=== PATIENT | male | born 1970 | race American Indian/Alaskan Native ===

== ENCOUNTER 2016-12-20 06:02 | Inpatient (IN) | payer MEDICARE ==
[2016-12-20] MEDS ORDERED: ATIVAN IV ONE (06:37)
[2016-12-20] MEDS ORDERED: ZOFRAN IV ONE (06:37)
[2016-12-20] MEDS ORDERED: MORPHINE IV ONE (06:37)
[2016-12-20] MEDS ORDERED: PROTONIX IV ONE (06:37)
[2016-12-20 07:07] LABS: Basophils % (Auto) 0.3 % (0.0-1.8); Hematocrit 32.1 % (35.5-45.6); Hemoglobin 10.4 gm/dl (11.8-15.2); Mean Corpuscular HGB Conc 33 % (32-34); Mean Corpuscular Hemoglobin 32 pg (28-32); Mean Corpuscular Volume 97 fl (84-94); Platelet Count 265 K/mm3 (140-440); Red Cell Distribution Width 16.9 % (13.2-15.2); White Blood Count 9.6 K/mm3 (4.5-11.0)
[2016-12-20 07:18] LABS: INR 1.01 (0.87-1.13)
[2016-12-20 07:19] LABS: Partial Thromboplastin Time 24.6 Sec. (24.2-36.6)
[2016-12-20 07:20] LABS: Creatine Kinase MB 1.2 ng/mL (0.0-4.0)
[2016-12-20 07:24] LABS: BUN/Creatinine Ratio 3.76; Calcium 9.4 mg/dL (8.4-10.2); Chloride 93.5 mmol/L (98-107); Potassium 4.4 mmol/L (3.6-5.0)
[2016-12-20 07:31] LABS: Alanine Aminotransferase 8 units/L (7-56); Albumin 3.6 g/dL (3.9-5); Albumin/Globulin Ratio 1.1 %; Alkaline Phosphatase 38 units/L (35-129); Bilirubin,Total 0.3 mg/dL (0.1-1.2); Magnesium 2.1 mg/dL (1.7-2.3); Phosphorous 5.7 mg/dL (2.5-4.5); Total Protein 6.8 g/dL (6.3-8.2)
[2016-12-20 07:32] LABS: Bilirubin,Direct < 0.2 mg/dL (0-0.2)
[2016-12-20] MEDS ORDERED: LEVAQUIN 500MG/100ML 500 MG/100 ML BAG IV ONE (07:34)
[2016-12-20 08:06] LABS: Urine Drugs of Abuse Note Disclamer
[2016-12-20 08:24] LABS: Bilirubin,Urine NEG (Negative); Blood,Urine LG (Negative); Ketones,Urine NEG (Negative); Leukocyte Esterase,Urine SM (Negative); Mucus,Urine FEW /HPF; Nitrite,Urine NEG (Negative); Urobilinogen,Urine < 2.0 mg/dL (<2.0)
--- NOTE | 2016-12-20 08:46 | Cat Scan Report ---
FINAL REPORT PROCEDURE: CT ABDOMEN PELVIS WO CON TECHNIQUE: Computerized axial tomography of the abdomen and pelvis was performed without intravenous contrast. This study is performed without intravascular contrast material and its sensitivity for abdominal and pelvic pathology, including neoplasms, inflammation, abscess, free fluid, thrombosis, arterial dissection and infarction, is reduced compared with a contrast enhanced study. Oral contrast was not administered limiting evaluation of the bowel as well. HISTORY: abd pain COMPARISON: None FINDINGS: Visualized lower thorax: Mild bibasilar subsegmental atelectasis. Infiltrative changes and fluid at the esophageal hiatus extending into the upper abdomen. Liver: Multiple hypodensities the largest of which is of the posterior segment of the right lobe 2.3 x 2.8 centimeters. Spleen: Normal size and attenuation. Gallbladder and biliary system: Normal. Pancreas: Infiltrative changes and fluid about the pancreas. Adrenals: Normal. Kidneys: Innumerable hypodensities as well as rounded densities isodense to [place] renal parenchyma largely replacing both kidneys which are enlarged. Multiple calcifications of both kidneys. No hydronephrosis GI tract: Mild colonic diverticulosis. No bowel obstruction. Normal appendix. Lymph nodes and mesentery: No lymphadenopathy or mesenteric mass. Vasculature: Unremarkable. Bladder: Circumferential bladder wall thickening possibly due to incomplete distension. Reproductive organs: Normal. Peritoneum: No ascites. Musculoskeletal structures: No significant abnormality. Other: Prior umbilical hernia repair. Catheter coiled within the pelvis. IMPRESSION: Suspect changes of uncomplicated pancreatitis. Correlate clinically and obtain follow-up examination to ensure improvement. Infiltrative changes and fluid extends superiorly through the esophageal hiatus. Suspect autosomal dominant polycystic disease with enlarged multi cystic kidneys containing multiple calcifications as well as simple cysts noted of the liver. Six-month follow-up CT to ensure stable appearance of hyperdensities of both kidneys is recommended. Mild colonic diverticulosis. Prior umbilical hernia repair. Bladder wall thickening possibly due to incomplete distention. Clinically exclude cystitis. Catheter coiled within the pelvis either dialysis catheter or intraperitoneal shunt.
--- NOTE | 2016-12-20 09:05 | Emergency Department Report ---
ED General Adult HPI - General Chief complaint: Abdominal Pain Stated complaint: ABD PAIN/EMESIS Time Seen by Provider: 12/20/16 06:16 Source: patient, EMS Mode of arrival: Stretcher Limitations: No Limitations - History of Present Illness Initial comments: Patient reports the onset of vomiting prior to arrival. He states he's been diagnosed with esophagitis in the past. He does not report any chest pain or difficulty in swallowing. He states that he had vomiting after eating. He complains of diffuse abdominal pain and some left flank pain. He states he urinates infrequently. He denies any fever or chills. He states he's had abdominal pain before but no specific diagnosis. He has end-stage renal apparently related to polycystic kidney disease and is on home dialysis. His last run was yesterday. -: Gradual, hour(s) Location: abdomen, left (flank) Radiation: non-radiation Severity scale (0 -10): 10 Quality: aching Consistency: constant Improves with: none Worsens with: none Associated Symptoms: nausea/vomiting. denies: chest pain, cough, diaphoresis, fever/chills, headaches, loss of appetite, malaise, shortness of breath, syncope , weakness - Related Data Home Medications Medication Instructions Recorded Confirmed Last Taken Calcitriol [Rocaltrol] 1 mcg PO BID 03/24/16 12/20/16 03/25/16 NIFEdipine XL [Procardia Xl] 60 mg PO QDAY 03/24/16 12/20/16 03/26/16 10:00 Sevelamer Carbonate [Renvela] 800 mg PO TIDWM 03/24/16 12/20/16 03/25/16 cloNIDine [Catapres] 0.2 mg PO TID 03/24/16 12/20/16 Unknown Allergies Allergy/AdvReac Type Severity Reaction Status Date / Time No Known Allergies Allergy Verified 09/26/13 10:05 ED Review of Systems ROS: Stated complaint: ABD PAIN/EMESIS Other details as noted in HPI Constitutional: denies: chills, fever Eyes: denies: eye pain, eye discharge, vision change ENT: denies: ear pain, throat pain Respiratory: denies: cough, shortness of breath, wheezing Cardiovascular: denies: chest pain, palpitations Endocrine: no symptoms reported Gastrointestinal: abdominal pain, nausea, vomiting. denies: diarrhea Genitourinary: denies: urgency, dysuria Musculoskeletal: denies: back pain, joint swelling, arthralgia Skin: denies: rash, lesions Neurological: denies: headache, weakness, paresthesias Psychiatric: denies: anxiety, depression Hematological/Lymphatic: denies: easy bleeding, easy bruising ED Past Medical Hx - Past Medical History Hx Hypertension: Yes (FOR 20+ YRS) Hx Deep Vein Thrombosis: Yes (RIGHT LEG YRS AGO) Hx GERD: Yes (MILD) Hx Renal Disease: No (Uses home PD) Hx Seizures: No Hx Asthma: No Hx HIV: No Additional medical history: umbilical hernia - Social History Smoking Status: Light Tobacco Smoker Substance Use Type: None - Medications Home Medications: Home Medications Medication Instructions Recorded Confirmed Last Taken Type Calcitriol [Rocaltrol] 1 mcg PO BID 03/24/16 12/20/16 03/25/16 History NIFEdipine XL [Procardia Xl] 60 mg PO QDAY 03/24/16 12/20/16 03/26/16 10:00 History Sevelamer Carbonate [Renvela] 800 mg PO TIDWM 03/24/16 12/20/16 03/25/16 History cloNIDine [Catapres] 0.2 mg PO TID 03/24/16 12/20/16 Unknown History ED Physical Exam - General Limitations: No Limitations General appearance: alert, in no apparent distress - Head Head exam: Present: atraumatic, normocephalic - Eye Eye exam: Present: normal appearance. Absent: scleral icterus - ENT ENT exam: Present: mucous membranes moist - Neck Neck exam: Present: normal inspection - Respiratory Respiratory exam: Present: normal lung sounds bilaterally. Absent: respiratory distress - Cardiovascular Cardiovascular Exam: Present: regular rate, normal rhythm. Absent: systolic murmur, diastolic murmur, rubs, gallop - GI/Abdominal GI/Abdominal exam: Present: soft, distended (perhaps slightly), tenderness ( some diffuse tenderness but no lata rebound), guarding (mild voluntary), normal bowel sounds. Absent: rebound, rigid, organomegaly, mass, bruit, pulsatile mass, hernia - Rectal Rectal exam: Present: deferred - Extremities Exam Extremities exam: Present: normal inspection - Back Exam Back exam: Present: normal inspection - Neurological Exam Neurological exam: Present: alert, oriented X3, CN II-XII intact. Absent: motor sensory deficit - Psychiatric Psychiatric exam: Present: normal affect, normal mood - Skin Skin exam: Present: warm, dry, intact, normal color. Absent: rash ED Course Vital Signs 12/20/16 12/20/16 12/20/16 06:38 07:04 07:28 Temperature 97.7 F Pulse Rate 85 Respiratory 20 17 Rate Blood Pressure O2 Sat by Pulse 100 Oximetry 12/20/16 12/20/16 12/20/16 07:29 07:31 07:33 Temperature Pulse Rate 89 92 H Respiratory 21 21 18 Rate Blood Pressure 157/97 157/97 157/97 O2 Sat by Pulse 99 97 Oximetry 12/20/16 12/20/16 12/20/16 07:35 07:37 07:39 Temperature Pulse Rate 85 90 Respiratory 24 27 H 22 Rate Blood Pressure 157/97 157/97 157/97 O2 Sat by Pulse 78 L 97 98 Oximetry 12/20/16 12/20/16 12/20/16 07:41 07:43 07:45 Temperature Pulse Rate 130 H 83 85 Respiratory 22 22 22 Rate Blood Pressure 157/97 157/97 157/97 O2 Sat by Pulse 96 99 99 Oximetry 12/20/16 12/20/16 12/20/16 07:47 07:49 07:50 Temperature Pulse Rate 83 85 86 Respiratory 19 17 22 Rate Blood Pressure 157/97 157/97 157/97 O2 Sat by Pulse 98 100 Oximetry - Reevaluation(s) Reevaluation #1: Patient was given antiemetics, Protonix and analgesia. Did have some atelectasis perhaps the left lower lobe and was given a dose of Levaquin. He was found to have an increased anion gap acidosis. I think this is related to pancreatitis as his lipase as finally been resulted and is over 2300. A CT of his abdomen showed uncomplicated pancreatitis per the radiologist. He has pre- existing polycystic kidney disease. Case was discussed with Dr. Arie Bowden who is admitted the patient for further care and evaluation. 12/20/16 09:14 ED Medical Decision Making - Lab Data Result diagrams: 12/20/16 06:36 12/20/16 06:36 - EKG Data -: EKG Interpreted by Me EKG shows normal: sinus rhythm, intervals, QRS complexes, ST-T waves - EKG Data Interpretation: nonspecific ST-T wave giovanni (left anterior fascicular block), other - Radiology Data Radiology results: report reviewed interpreted by me: Chest x-ray was some atelectasis left lower lobe. CT was consistent with fairly extensive pancreatitis. Critical care attestation.: If time is entered above; I have spent that time in minutes in the direct care of this critically ill patient, excluding procedure time. ED Disposition Clinical Impression: Metabolic acidosis, increased anion gap, End stage renal disease on dialysis Acute pancreatitis Qualifiers: Pancreatitis type: unspecified pancreatitis type Acute pancreatitis complication: unspecified Qualified Code(s): K85.90 - Acute pancreatitis without necrosis or infection, unspecified Disposition: OP ADMITTED IP TO THIS HOSP Is pt being admited?: Yes Does the pt Need Aspirin: No Condition: Stable Referrals: PRIMARY CARE, [Primary Care Provider] - 3-5 Days Time of Disposition: 09:17
[2016-12-20] MEDS ORDERED: BENADRYL ONE (09:09)
[2016-12-20] MEDS ORDERED: DILAUDID ONE (09:09)
--- NOTE | 2016-12-20 09:17 | XRay Report ---
AP CHEST: HISTORY: Hypertension There is poor inspiration. A small left lower lobe air space opacity is identified. The fever is present, this could represent an infiltrate. This may also represent segmental atelectasis. The remainder of the lungs are clear. Normal heart and mediastinal structures. Normal bony thorax. IMPRESSION: Left lower lobe opacity as described.
[2016-12-20] MEDS ORDERED: DILAUDID IV ONE (09:21)
[2016-12-20] MEDS ORDERED: BENADRYL IV ONE (09:21)
[2016-12-20] MEDS ORDERED: DULCOLAX PR PRN (09:38)
[2016-12-20] MEDS ORDERED: MILK OF MAGNESIA PO PRN (09:38)
--- NOTE | 2016-12-20 09:45 | History and Physical Report ---
History of Present Illness Date of examination: 12/20/16 Date of admission: 12-20-16 Chief complaint: nausea and vomiting History of present illness: Patient is a 46-year-old male that originally presented to the ED with nausea vomiting. Associated with some meals. No bleeding no hematopoiesis no hematochezia. Patient has a history of end-stage renal disease and had an episode of nausea and vomiting after hemodialysis yesterday. Patient however states he's been nauseated when he's not having dialysis as well. Patient at present states he still has some nausea associated with vague abdominal pain that extends from the mid epigastrium to left upper and sometimes lower abdomen. She did state Zofran helps. CT scan showed uncomplicated pancreatitis. Patient initially denied EtOH use but when asked again after findings stated that he drinks a half a beer and 2 shots of alcohol per day. He should admitted for acute pancreatitis. Was also found to have increased gap metabolic acidosis. His sawyer helper is Dr. Mcgrath. Also uses that his primary care physician majority of the time. Patient appears now to be hemodynamically stable on current pain regime. Past History Past Medical History: GERD, hypertension, other (pud). denies: acute SD, atrial fib, anemia, arthritis, CAD, DVT, heart failure, hyperthyroidism, hypothyroidism, migraines, pulmonary embolism, seizures, stroke Past Surgical History: hernia repair Social history: lives with family, smoking, full code. denies: alcohol abuse, prescription drug abuse, IV drug use Family history: hypertension Medications and Allergies Allergies Allergy/AdvReac Type Severity Reaction Status Date / Time No Known Allergies Allergy Verified 09/26/13 10:05 Home Medications Medication Instructions Recorded Confirmed Last Taken Type Calcitriol [Rocaltrol] 1 mcg PO BID 03/24/16 12/20/16 03/25/16 History NIFEdipine XL [Procardia Xl] 60 mg PO QDAY 03/24/16 12/20/16 03/26/16 10:00 History Sevelamer Carbonate [Renvela] 800 mg PO TIDWM 03/24/16 12/20/16 03/25/16 History cloNIDine [Catapres] 0.2 mg PO TID 03/24/16 12/20/16 Unknown History Review of Systems Constitutional: no weight loss Ears, nose, mouth and throat: no deferred, no ear discharge, no decreased hearing, no nose pain, no nasal congestion, no bleeding gums, no dental pain, no dysphagia, no vertigo, no pain front of neck Cardiovascular: no chest pain, no orthopnea, no rapid/irregular heart beat, no dyspnea on exertion, no claudication, no phlebitis, no leg edema, no other Respiratory: no cough with sputum, no congestion, no wheezing, no pleurisy, no sleep apnea, no other Gastrointestinal: abdominal pain, nausea, vomiting, change in bowel habits, loss of appetite, no diarrhea, no constipation, no hematemesis, no coffee ground emesis, no BRBPR, no melena, no hematochezia, no early satiety, no heartburn, no indigestion, no belching, no excessive gas, no jaundice, no dyspepsia/bloating, no early satiety, no lactose intolerance Genitourinary Male: no hematuria, no flank pain, no discharge, no urinary frequency, no urinary hesitancy, no nocturia, no impotence, no decreased libido , no testicular lump, no polyuria, no urinary retention Rectal: no pain, no incontinence Musculoskeletal: no shooting arm pain, no low back pain, no shooting leg pain, no leg numbness/tingling, no hot joints, no muscle weakness, no muscle cramps, no myalgias, no atrophy, no gait dysfunction Integumentary: no pruritis, no redness, no sores, no wounds, no jaundice, no growths, no lesions, no depigmentation, no dryness, no change in hair/nails, no brittle nails, no hirsutism, no onychomycosis Exam - Constitutional Vitals: Temp Pulse Resp BP Pulse Ox 97.7 F 90 17 154/104 99 12/20/16 06:38 12/20/16 09:15 12/20/16 09:24 12/20/16 09:15 12/20/16 09:24 General appearance: Present: mild distress - EENT ENT: hearing intact, clear oral mucosa - Neck Neck: Present: supple, normal ROM - Respiratory Respiratory effort: normal Respiratory: bilateral: CTA - Cardiovascular Heart Sounds: Present: S1 & S2. Absent: rub, click - Extremities Extremities: pulses symmetrical, No edema - Abdominal General gastrointestinal: Present: tender, non-distended, hypoactive bowel sounds, other (pain greater in left quadrant.) Male genitourinary: Present: normal - Integumentary Integumentary: Present: clear, warm, dry - Musculoskeletal Musculoskeletal: gait normal, strength equal bilaterally - Psychiatric Psychiatric: appropriate mood/affect, intact judgment & insight - Neurologic Neurologic: CNII-XII intact, moves all extremities Results - Labs CBC & Chem 7: 12/20/16 06:36 12/20/16 06:36 Labs: Laboratory Last Values WBC 9.6 K/mm3 (4.5-11.0) 12/20/16 06:36 RBC 3.30 M/mm3 (3.65-5.03) L 12/20/16 06:36 Hgb 10.4 gm/dl (11.8-15.2) L 12/20/16 06:36 Hct 32.1 % (35.5-45.6) L 12/20/16 06:36 MCV 97 fl (84-94) H 12/20/16 06:36 MCH 32 pg (28-32) 12/20/16 06:36 MCHC 33 % (32-34) 12/20/16 06:36 RDW 16.9 % (13.2-15.2) H 12/20/16 06:36 Plt Count 265 K/mm3 (140-440) 12/20/16 06:36 Lymph % (Auto) 5.9 % (13.4-35.0) L 12/20/16 06:36 [place] % (Auto) 4.3 % (0.0-7.3) 12/20/16 06:36 Eos % (Auto) 0.0 % (0.0-4.3) 12/20/16 06:36 Baso % (Auto) 0.3 % (0.0-1.8) 12/20/16 06:36 Lymph # 0.6 K/mm3 (1.2-5.4) L 12/20/16 06:36 [place] # 0.4 K/mm3 (0.0-0.8) 12/20/16 06:36 Eos # 0.0 K/mm3 (0.0-0.4) 12/20/16 06:36 Baso # 0.0 K/mm3 (0.0-0.1) 12/20/16 06:36 Seg Neutrophils % 89.5 % (40.0-70.0) H 12/20/16 06:36 Seg Neutrophils # 8.6 K/mm3 (1.8-7.7) H 12/20/16 06:36 PT 13.2 Sec. (12.2-14.9) 12/20/16 06:36 INR 1.01 (0.87-1.13) 12/20/16 06:36 APTT 24.6 Sec. (24.2-36.6) 12/20/16 06:36 VBG pH 7.302 (7.320-7.420) L 12/20/16 07:45 Sodium 138 mmol/L (137-145) 12/20/16 06:36 Potassium 4.4 mmol/L (3.6-5.0) 12/20/16 06:36 Chloride 93.5 mmol/L (98-107) L 12/20/16 06:36 Carbon Dioxide 19 mmol/L (22-30) L 12/20/16 06:36 Anion Gap 30 mmol/L 12/20/16 06:36 BUN 79 mg/dL (9-20) H 12/20/16 06:36 Creatinine 21.0 mg/dL (0.8-1.5) H 12/20/16 06:36 Estimated GFR 3 ml/min 12/20/16 06:36 BUN/Creatinine Ratio 3.76 % 12/20/16 06:36 Glucose 88 mg/dL (75-100) 12/20/16 06:36 Lactic Acid 0.9 mmol/L (0.7-2.0) 12/20/16 07:45 Calcium 9.4 mg/dL (8.4-10.2) 12/20/16 06:36 Phosphorus 5.7 mg/dL (2.5-4.5) H 12/20/16 06:36 Magnesium 2.1 mg/dL (1.7-2.3) 12/20/16 06:36 Total Bilirubin 0.3 mg/dL (0.1-1.2) 12/20/16 06:36 Direct Bilirubin < 0.2 mg/dL (0-0.2) 12/20/16 06:36 AST 18 units/L (5-40) 12/20/16 06:36 ALT 8 units/L (7-56) 12/20/16 06:36 Alkaline Phosphatase 38 units/L (35-129) 12/20/16 06:36 Total Creatine Kinase 121 units/L (55-170) 12/20/16 06:36 CK-MB (CK-2) 1.2 ng/mL (0.0-4.0) 12/20/16 06:36 CK-MB (CK-2) Rel Index 0.9 (0-4) 12/20/16 06:36 Troponin T < 0.010 ng/mL (0.00-0.029) 12/20/16 06:36 NT-Pro-B Natriuret Pep 6862 pg/mL (0-450) H 12/20/16 06:36 Total Protein 6.8 g/dL (6.3-8.2) 12/20/16 06:36 Albumin 3.6 g/dL (3.9-5) L 12/20/16 06:36 Albumin/Globulin Ratio 1.1 % 12/20/16 06:36 Lipase 2313 units/L (13-60) H 12/20/16 06:36 Urine Color Yellow (Yellow) 12/20/16 08:00 Urine Turbidity Clear (Clear) 12/20/16 08:00 Urine pH 7.0 (5.0-7.0) 12/20/16 08:00 Ur Specific [place] 1.009 (1.003-1.030) 12/20/16 08:00 Urine Protein 100 mg/dl mg/dL (Negative) 12/20/16 08:00 Urine Glucose (UA) Neg mg/dL (Negative) 12/20/16 08:00 Urine Ketones Neg mg/dL (Negative) 12/20/16 08:00 Urine Blood Lg (Negative) 12/20/16 08:00 Urine Nitrite Neg (Negative) 12/20/16 08:00 Urine Bilirubin Neg (Negative) 12/20/16 08:00 Urine Urobilinogen < 2.0 mg/dL (<2.0) 12/20/16 08:00 Ur Leukocyte Esterase Sm (Negative) 12/20/16 08:00 Urine WBC (Auto) 7.0 /HPF (0.0-6.0) H 12/20/16 08:00 Urine RBC (Auto) 8.0 /HPF (0.0-6.0) 12/20/16 08:00 U Epithel Cells (Auto) < 1.0 /HPF (0-13.0) 12/20/16 08:00 Urine Mucus Few /HPF 12/20/16 08:00 - Imaging and Cardiology EKG: image reviewed Chest x-ray: image reviewed CT scan - abdomen: image reviewed Assessment and Plan Advance Directives: Yes VTE prophylaxis?: Chemical Plan of care discussed with patient/family: Yes - Patient Problems (1) Acute pancreatitis Current Visit: Yes Status: Acute Qualifiers: Pancreatitis type: unspecified pancreatitis type Acute pancreatitis complication: unspecified Qualified Code(s): K85.90 - Acute pancreatitis without necrosis or infection, unspecified Plan to address problem: Patient with acute pancreatitis given history most likely etiology is alcohol use. Patient's lipase 2300 CT scan shows uncomplicated pancreatitis. Clinical observation consistent with acute pancreatitis. We'll treat nothing by mouth start Protonix. Follow lipase. Avoid alcohol. Symptomatic relief with Zofran. (2) End stage renal disease on dialysis Current Visit: Yes Status: Acute Plan to address problem: Consult renal for hemodialysis. Patient also has increased metabolic acidosis. We'll add small dose of bicarbonate. Acidosis consistent with RTA. (3) Metabolic acidosis, increased anion gap Current Visit: Yes Status: Acute (4) Anemia, chronic renal failure Current Visit: No Status: Acute Qualifiers: Chronic kidney disease stage: stage 5 Qualified Code(s): N18.5 - Chronic kidney disease, stage 5; D63.1 - Anemia in chronic kidney disease Plan to address problem: End-stage renal disease on hemodialysis. (5) Hypertension Current Visit: No Status: Acute Qualifiers: Hypertension type: essential hypertension Qualified Code(s): I10 - Essential (primary) hypertension Plan to address problem: BP fairly well controlled at this particular time we'll restart medications antihypertensives. (6) Pneumonia Current Visit: Yes Status: Acute Qualifiers: Pneumonia type: P Aspiration pneumonia type: A Laterality: L Lung location: L Plan to address problem: Patient did have some small amount of atelectasis does not appear to be pneumonia at this particular time no shortness of breath. Examining x-ray carefully and does not appear to be an infiltrate. Treated empirically today we 'll hold anabiotic's and watch for any fever or signs of sepsis. (7) Metabolic acidosis Current Visit: Yes Status: Acute Plan to address problem: Suspect secondary to RTA nephrology consult pending. Bicarbonate.
[2016-12-20] MEDS ORDERED: NACL 0.9% 1000 ML 1,000 ML IV SCH (10:00)
[2016-12-20] MEDS ORDERED: LOVENOX SUB-Q SCH (10:00)
[2016-12-20] MEDS: LOVENOX SUB-Q SCH (10:12)
[2016-12-20] MEDS: RENVELA PO SCH ×2 (11:38→16:04)
[2016-12-20] MEDS: PROCARDIA XL PO SCH (12:09)
[2016-12-20] MEDS: DILAUDID IV PRN ×3 (12:27→21:21)
[2016-12-20] MEDS: CATAPRES PO SCH ×2 (13:00→21:24)
--- NOTE | 2016-12-20 13:13 | Consultation ---
History of Present Illness - Reason for Consult Consult date: 12/20/16 end stage renal disease Requesting physician: DAVIDE RUBY - History of Present Illness This is a 46yo M well known to our group, with past medical history of hypertension, ESRD on PD, anemia of ESRD, who presented to the ED with complaints of midgastric abdominal pain, radiating to the back, associated with nausea, multiple episodes of non-bloody, nonbilious vomiting. No melena, hematemesis, or hematochezia reported. Pt could not perform PD last night completely due to above symptoms. In ER, CT scan showed uncomplicated pancreatitis. pt reports drinking a half a beer and 2 shots of alcohol per day. labs showed elevated lipase of >2000. pt is being admitted for acute pancreatitis. Renal consult is requested for management of ESRD and PD. Past History Past Medical History: GERD, hypertension, other (pud). denies: acute [place], atrial fib, anemia, arthritis, CAD, DVT, heart failure, hyperthyroidism, hypothyroidism, migraines, pulmonary embolism, seizures, stroke Past Surgical History: hernia repair Social history: lives with family, smoking, full code. denies: alcohol abuse, prescription drug abuse, IV drug use Family history: hypertension Medications and Allergies Allergies Allergy/AdvReac Type Severity Reaction Status Date / Time No Known Allergies Allergy Verified 09/26/13 10:05 Home Medications Medication Instructions Recorded Confirmed Last Taken Type Calcitriol [Rocaltrol] 1 mcg PO BID 03/24/16 12/20/16 03/25/16 History NIFEdipine XL [Procardia Xl] 60 mg PO QDAY 03/24/16 12/20/16 03/26/16 10:00 History Sevelamer Carbonate [Renvela] 800 mg PO TIDWM 03/24/16 12/20/16 03/25/16 History cloNIDine [Catapres] 0.2 mg PO TID 03/24/16 12/20/16 Unknown History Active Meds: Active Medications Acetaminophen (Tylenol) 650 mg PO Q4H PRN PRN Reason: Pain MILD(1-3)/Fever >100.5/ROJO Albuterol/Ipratropium (Duoneb 0.5 Mg-3 Mg/3 Ml Soln) 1 ampul IH Q6HRT [facility] Bisacodyl (Dulcolax) 10 mg SD QDAY PRN PRN Reason: Constipation unrelieved by [facility] Calcitriol (Rocaltrol) 1 mcg PO BID [facility] Clonidine HCl (Catapres) 0.2 mg PO TID [facility] Enoxaparin Sodium (Lovenox) 30 mg SUB-Q QDAY [facility] Last Admin: 12/20/16 10:12 Dose: 30 mg Hydromorphone HCl (Dilaudid) 0.5 mg IV Q3H PRN PRN Reason: Pain , Severe (7-10) Last Admin: 12/20/16 12:27 Dose: 0.5 mg Sodium Chloride (Nacl 0.9% 1000 Ml) 1,000 mls @ 125 mls/hr IV DIRECT [facility] Last Admin: 12/20/16 12:10 Dose: 125 mls/hr Sodium Bicarbonate 150 meq/ (Dextrose) 1,150 mls @ 42 mls/hr IV DIRECT [facility] Magnesium Hydroxide (Milk Of Magnesia) 30 ml PO Q4H PRN PRN Reason: Constipation Nifedipine (Procardia Xl) 60 mg PO QDAY [facility] Last Admin: 12/20/16 12:09 Dose: 60 mg Ondansetron HCl (Zofran) 8 mg IV Q6H PRN PRN Reason: N/V unrelieved by Reglan Sevelamer Carbonate (Renvela) 800 mg PO TIDWM [facility] Last Admin: 12/20/16 11:38 Dose: Not Given Review of Systems All systems: negative Constitutional: fatigue, poor appetite Gastrointestinal: abdominal pain, nausea, vomiting, heartburn, no BRBPR, no melena, no hematochezia, no jaundice Genitourinary Male: hematuria, no dysuria, no flank pain Exam - Vital Signs Vital signs: Vital Signs Temp 97.7 F 12/20/16 06:38 - General Appearance General appearance: well-developed, well-nourished, appears stated age EENT: ATNC, PERRL, mucous membranes moist Neck: Present: neck supple Respiratory: Clear to Ascultation Heart: regular, S1S2 Gastrointestinal: Present: tenderness, other (PD cath site c/d/i ) Integumentary: no rash, other (no edema ) Neurologic: no focal deficit, alert and oriented x3, strength 5/5, CN 3-12 intact Psychiatric: mood/affect appropriate, cooperative Results - Lab Results 12/20/16 06:36 12/20/16 06:36 Most recent lab results Calcium 9.4 mg/dL (8.4-10.2) 12/20/16 06:36 Phosphorus 5.7 mg/dL (2.5-4.5) H 12/20/16 06:36 Magnesium 2.1 mg/dL (1.7-2.3) 12/20/16 06:36 Laboratory Tests 12/20/16 12/20/16 12/20/16 06:36 06:36 06:36 Phosphorus 5.7 H Magnesium 2.1 Total Bilirubin 0.3 Direct Bilirubin < 0.2 AST 18 ALT 8 Alkaline Phosphatase 38 Total Creatine Kinase 121 CK-MB (CK-2) 1.2 CK-MB (CK-2) Rel Index 0.9 Troponin T < 0.010 NT-Pro-B Natriuret Pep 6862 H Total Protein 6.8 Albumin 3.6 L Albumin/Globulin Ratio 1.1 Lipase 2313 H Urine Color Urine Turbidity Urine pH Ur Specific [place] Urine Protein Urine Glucose (UA) Urine Ketones Urine Blood Urine Nitrite Urine Bilirubin Urine Urobilinogen Ur Leukocyte Esterase Urine WBC (Auto) Urine RBC (Auto) U Epithel Cells (Auto) Urine Mucus Urine Opiates Screen Urine Methadone Screen Ur Barbiturates Screen Ur Phencyclidine Scrn Ur Amphetamines Screen U Benzodiazepines Scrn Urine Cocaine Screen U Marijuana (THC) Screen Drugs of Abuse Note 12/20/16 12/20/16 08:00 08:00 Phosphorus Magnesium Total Bilirubin Direct Bilirubin AST ALT Alkaline Phosphatase Total Creatine Kinase CK-MB (CK-2) CK-MB (CK-2) Rel Index Troponin T NT-Pro-B Natriuret Pep Total Protein Albumin Albumin/Globulin Ratio Lipase Urine Color Yellow Urine Turbidity Clear Urine pH 7.0 Ur Specific [place] 1.009 Urine Protein 100 mg/dl Urine Glucose (UA) Neg Urine Ketones Neg Urine Blood Lg Urine Nitrite Neg Urine Bilirubin Neg Urine Urobilinogen < 2.0 Ur Leukocyte Esterase Sm Urine WBC (Auto) 7.0 H Urine RBC (Auto) 8.0 U Epithel Cells (Auto) < 1.0 Urine Mucus Few Urine Opiates Screen Presumptive negative Urine Methadone Screen Presumptive negative Ur Barbiturates Screen Presumptive negative Ur Phencyclidine Scrn Presumptive negative Ur Amphetamines Screen Presumptive negative U Benzodiazepines Scrn Presumptive negative Urine Cocaine Screen Presumptive negative U Marijuana (THC) Screen Presumptive negative Drugs of Abuse Note Disclamer Assessment and Plan Assessment: 1. acute pancreatitis 2. ESRD on PD 3. Anemia of ESRD 4. Hypertension 5. metabolic acidosis 6.Secondary hyperparathyroidism Plan/Recommendations: 1. pt is NPO, awaiting further GI evaluation 2. continue IV D5 + 150meq Na bicarb at 42ml/hr 3. will resume CAPD in AM once abdominal pain improved, 4 cycles w/ 1.5dineal solution, dwell volume 1.5-2L as tolerated. 4. continue sensipar/renvela for treatment of secondary hyperparathyrodism 5. will monitor electrolytes and renal parameters and make further recommendations Thanks for the consultation will follow patient closely with you.
[2016-12-20] MEDS: ROCALTROL PO SCH ×2 (13:39→21:43)
[2016-12-20] MEDS: DUONEB 0.5 MG-3 MG/3 ML SOLN IH SCH ×2 (13:59→20:17)
--- NOTE | 2016-12-20 15:04 | Gastroenterology Consultation ---
History of Present Illness - Reason for Consult Consult date: 12/20/16 acute pancreatitis Requesting physician: DAVIDE BOWDEN - History of Present Illness The patient is a 46 year old man with multiple medical problems as below for who consultation was requested for acute pancreatitis. He was at baseline until yesterday afternoon when he developed acute periumbilical pain which was severe and radiated to the back. He has no prior history of pancreatitis or gallstones. The patient drinks 2 shots of liquor daily and a half a beer. He smokes 5 cigarettes daily. No FH of pancreatitis Past History Past Medical History: GERD, hypertension, other (pud). denies: acute [place], atrial fib, anemia, arthritis, CAD, DVT, heart failure, hyperthyroidism, hypothyroidism, migraines, pulmonary embolism, seizures, stroke Past Surgical History: hernia repair Social history: lives with family, smoking, full code. denies: alcohol abuse, prescription drug abuse, IV drug use Family history: hypertension Medications and Allergies Allergies Allergy/AdvReac Type Severity Reaction Status Date / Time No Known Allergies Allergy Verified 09/26/13 10:05 Home Medications Medication Instructions Recorded Confirmed Last Taken Type Calcitriol [Rocaltrol] 1 mcg PO BID 03/24/16 12/20/16 03/25/16 History NIFEdipine XL [Procardia Xl] 60 mg PO QDAY 03/24/16 12/20/16 03/26/16 10:00 History Sevelamer Carbonate [Renvela] 800 mg PO TIDWM 03/24/16 12/20/16 03/25/16 History cloNIDine [Catapres] 0.2 mg PO TID 03/24/16 12/20/16 Unknown History Active Meds: Active Medications Acetaminophen (Tylenol) 650 mg PO Q4H PRN PRN Reason: Pain MILD(1-3)/Fever >100.5/ROJO Albuterol/Ipratropium (Duoneb 0.5 Mg-3 Mg/3 Ml Soln) 1 ampul IH Q6HRT [facility] Last Admin: 12/20/16 13:59 Dose: 1 ampul Bisacodyl (Dulcolax) 10 mg [place] QDAY PRN PRN Reason: Constipation unrelieved by MOM Calcitriol (Rocaltrol) 1 mcg PO BID [facility] Last Admin: 12/20/16 13:39 Dose: Not Given Clonidine HCl (Catapres) 0.2 mg PO TID [facility] Last Admin: 12/20/16 13:00 Dose: 0.2 mg Enoxaparin Sodium (Lovenox) 30 mg SUB-Q QDAY [facility] Last Admin: 12/20/16 10:12 Dose: 30 mg Hydromorphone HCl (Dilaudid) 0.5 mg IV Q3H PRN PRN Reason: Pain , Severe (7-10) Last Admin: 12/20/16 12:27 Dose: 0.5 mg Sodium Chloride (Nacl 0.9% 1000 Ml) 1,000 mls @ 125 mls/hr IV DIRECT [facility] Last Admin: 12/20/16 12:10 Dose: 125 mls/hr Sodium Bicarbonate 150 meq/ (Dextrose) 1,150 mls @ 42 mls/hr IV DIRECT [facility] Magnesium Hydroxide (Milk Of Magnesia) 30 ml PO Q4H PRN PRN Reason: Constipation Nifedipine (Procardia Xl) 60 mg PO QDAY [facility] Last Admin: 12/20/16 12:09 Dose: 60 mg Ondansetron HCl (Zofran) 8 mg IV Q6H PRN PRN Reason: N/V unrelieved by Reglan Peritoneal Dialysis Solution (Dianeal Low Calcium W/1.5% Dextrose) 2,000 ml IP Q6HR [facility] Sevelamer Carbonate (Renvela) 800 mg PO TIDWM [facility] Last Admin: 12/20/16 11:38 Dose: Not Given Review of Systems - Review of Systems Constitutional: no weight loss, no weight gain Eyes: no change in vision Ears, Nose, Throat: no decreased hearing, no difficulty swallowing, no epistaxis Breasts: deferred Cardiovascular: no chest pain, no palpitations, no shortness of breath Respiratory: no cough, no shortness of breath, no wheezing, no home oxygen Gastrointestinal: abdominal pain, nausea, vomiting, no diarrhea, no constipation , no change in bowel habits, no hematemesis, no melena Rectal: no pain Male Genitourinary: deferred Musculoskeletal: no gait dysfunction, no joint pain, no muscle pain Integumentary: no rash, no pruritis, no jaundice Neurological: no head injury, no paralysis, no weakness, no memory loss Psychiatric: no anxiety, no memory loss, no change in appetite Endocrine: no cold intolerance, no heat intolerance Hematologic/Lymphatic: no easy bruising, no easy bleeding Allergic/Immunologic: no wheezing Exam - Constitutional Vital Signs: Temp Pulse Resp BP Pulse Ox 98.5 F 88 20 182/102 97 12/20/16 11:48 12/20/16 14:13 12/20/16 14:13 12/20/16 13:00 12/20/16 13:59 General appearance: no acute distress, well-nourished - EENT Eyes: PERRL ENT: hearing intact, clear oral mucosa, dentition normal - Neck Neck: supple, normal ROM, no masses or JVD - Respiratory Respiratory effort: normal Respiratory: bilateral: CTA - Breasts Breasts: deferred - Cardiovascular Rhythm: regular Heart Sounds: Present: S1 & S2. Absent: gallop, rub Extremities: pulses intact, No edema, normal color, Full ROM Extremity abnormal: other (AV shunt in left forearm) - Gastrointestinal General gastrointestinal: Present: soft, tender (diffuse tenderness with no rebound). Absent: distended, rigid, normal bowel sounds, mass, hernia Rectal Exam: deferred - Integumentary Integumentary: Present: clear, warm, dry - Neurologic Neurological: alert and oriented x3 - Psychiatric Psychiatric: appropriate mood/affect, intact judgment & insight, memory intact - Labs CBC & Chem 7: 12/20/16 06:36 12/20/16 06:36 - Imaging CT Scan: image reviewed (A non contrasted CT was performed. Kidneys revealed extensive cystic disease. A few cystic lesion were scattered throughout the liver. The pancreas was moderately enlarged with no obvious phlegmon/ pseudocyst formation. The study was limited without contrast) Assessment and Plan - Patient Problems (1) Acute pancreatitis Current Visit: Yes Status: Acute Qualifiers: Pancreatitis type: unspecified pancreatitis type Acute pancreatitis complication: unspecified Qualified Code(s): K85.90 - Acute pancreatitis without necrosis or infection, unspecified Plan to address problem: Alcohol is the likely etiology. Rule out gallstones. Less likely congenital or familial. Will plan u/s and continue supportive care, pain control as you have initiated. Thank you, Dr. Bowden, for asking me to see Mr. Beckham in consultation. (2) End stage renal disease on dialysis Current Visit: Yes Status: Acute (3) Metabolic acidosis Current Visit: Yes Status: Acute (4) ESRD on peritoneal dialysis Current Visit: No Status: Acute
[2016-12-20] MEDS: SODIUM BICARBONATE 150 MEQ in D5W 1,000 ML IV SCH (16:00)
[2016-12-20] MEDS: ZOFRAN IV PRN ×2 (17:12→21:42)
[2016-12-21] MEDS: DILAUDID IV PRN ×7 (01:02→22:10)
[2016-12-21] MEDS: DUONEB 0.5 MG-3 MG/3 ML SOLN IH SCH ×4 (02:30→19:51)
[2016-12-21] MEDS: DIANEAL LOW CALCIUM W/1.5% DEXTROSE IP SCH ×3 (05:41→18:30)
[2016-12-21] MEDS: ZOFRAN IV PRN (06:45)
[2016-12-21 08:15] LABS: BUN/Creatinine Ratio 3.69; Bilirubin,Total 0.4 mg/dL (0.1-1.2); Calcium 8.7 mg/dL (8.4-10.2); Chloride 93.9 mmol/L (98-107); Potassium 4.4 mmol/L (3.6-5.0); Total Protein 6.5 g/dL (6.3-8.2)
[2016-12-21] MEDS: RENVELA PO SCH ×3 (09:30→17:55)
[2016-12-21] MEDS: CATAPRES PO SCH ×3 (09:41→20:53)
[2016-12-21] MEDS: LOVENOX SUB-Q SCH (09:42)
[2016-12-21] MEDS: PROCARDIA XL PO SCH (09:42)
[2016-12-21] MEDS: ROCALTROL PO SCH ×2 (09:42→21:38)
--- NOTE | 2016-12-21 10:01 | Admit Criteria Form ---
Admission Criteria Documentation: PANCREATITIS Clinical Indications for Admission to Inpatient Care (Place 'X' for any and all applicable criteria): Admission is indicated for ANY ONE of the following (1)(2)(3)(4): [X]I. Acute pancreatitis[A] as indicated by 2 or more of the following: [X]a) Abdominal pain (eg, epigastric, left upper quadrant) [X]b) Serum amylase or serum lipase greater than 3 times the upper limit of normal [X]c) Characteristic findings from abdominal imaging (eg, pancreatic inflammation, pancreatic necrosis, peripancreatic fluid collection)[B] [ ]II. Pancreatitis (acute or chronic) requiring inpatient care as indicated by 1 or more of the following: [ ]a) Inability to maintain oral hydration Hypoxemia [ ]b) Evidence of infection (eg, fever, peripancreatic abscess) [ ]c) Severe pain requiring acute inpatient management [ ]d) Hemodynamic instability [ ]e) Hypoxemia [ ]f) Acute renal failure [ ]g) Severe electrolyte abnormalities Extended stay beyond goal length of stay may be needed for (1)(11) [ ]a) Severe acute pancreatitis (10)(19) [ ]b) Persistent symptoms, ascites, or pleural effusion [ ]c) Abdominal compartment syndrome (10) [ ]d) Late complications [ ]e) Acute renal failure (27) [ ]f) Gallstones in gallbladder The original [employer] content created by [employer] has been revised. The portions of the content which have been revised are identified through the use of italic text or in bold,and [facility] has neither reviewed nor approved the modified material.All other unmodified content is copyright [employer]. Please see references footnoted in the original [employer] edition 2016 Admission Criteria Met: Yes
--- NOTE | 2016-12-21 10:13 | Ultrasound Report ---
ULTRASOUND ABDOMEN LIMITED HISTORY: Abdominal pain, pancreatitis, evaluate for gallstones. TECHNIQUE: Transabdominal ultrasound with color Doppler interrogation. FINDINGS: Correlation is made with the noncontrast CT abdomen and pelvis performed the same day. CT demonstrates findings consistent with acute pancreatitis. The liver is normal size and contour. There are numerous hepatic cysts ranging from 1.3 cm to 2.7 cm in diameter. No cyst solid mass is detected. The gallbladder is normal dimensions and wall thickness. No gallstones are identified. The CBD measures 5.7 mm. The right kidney is markedly enlarged and contains innumerable cysts. The right kidney measures 18.7 cm in length. Correlation with CT demonstrates numerous simple and hemorrhagic cysts in the right kidney. This is consistent with a autosomal dominant polycystic kidney disease. No obvious renal mass or obstruction. The pancreas is obscured. The proximal aorta measures 2.2 cm. No ascites is appreciated. IMPRESSION: No evidence for cholelithiasis. Multiple liver and renal cysts as described above. Autosomal dominant polycystic kidney disease is suspected.
[2016-12-21 10:49] LABS: Albumin 3.2 g/dL (3.9-5)
--- NOTE | 2016-12-21 13:37 | Progress Note ---
Assessment and Plan Assessment: 1. acute pancreatitis 2. ESRD on PD 3. Anemia of ESRD 4. Hypertension 5. metabolic acidosis 6.Secondary hyperparathyroidism Plan/Recommendations: 1. pt is NPO, follow GI recommendations 2. continue IV D5 + 150meq Na bicarb at 42ml/hr 3. started CAPD this AM, will continue 4 cycles w/ 1.5dineal solution, dwell volume 2L 4. continue sensipar/renvela for treatment of secondary hyperparathyrodism 5. will monitor electrolytes and renal parameters and make further recommendations Subjective Date of service: 12/21/16 Principal diagnosis: acute pancreatitis, ESRD on PD Interval history: patient with persistent nausea, abdominal pain. tolerating PD well. Objective - Vital Signs Vital signs: Vital Signs - 12hr 12/21/16 12/21/16 12/21/16 04:45 08:34 11:48 Temperature 99.0 F 98.7 F 99.2 F Pulse Rate [ Anterior Bilateral Throughout] Pulse Rate [ 98 H 90 90 Right Radial] Respiratory 20 20 20 Rate Respiratory Rate [Anterior Bilateral Throughout] Blood Pressure 131/94 137/99 143/91 [Right Arm] O2 Sat by Pulse 97 98 Oximetry 12/21/16 12/21/16 13:17 13:30 Temperature Pulse Rate [ 86 88 Anterior Bilateral Throughout] Pulse Rate [ Right Radial] Respiratory Rate Respiratory 20 20 Rate [Anterior Bilateral Throughout] Blood Pressure [Right Arm] O2 Sat by Pulse 95 Oximetry - General Appearance General appearance: well-developed, well-nourished, appears stated age EENT: ATNC, PERRL, mucous membranes moist Neck: no JVD Respiratory: Present: Clear to Ascultation Cardiology: regular, S1S2 Gastrointestinal: tenderness, distended Integumentary: no rash, other (no edema b/l LE ) Neurologic: no focal deficit, alert and oriented x3, strength 5/5, CN 3-12 intact Psychiatric: mood/affect appropriate, cooperative - Lab 12/20/16 06:36 12/21/16 07:20 Most recent lab results Calcium 8.7 mg/dL (8.4-10.2) 12/21/16 07:20 Phosphorus 5.7 mg/dL (2.5-4.5) H 12/20/16 06:36 Magnesium 2.1 mg/dL (1.7-2.3) 12/20/16 06:36
[2016-12-21] MEDS ORDERED: PROVENTIL IH PRN (14:33)
--- NOTE | 2016-12-21 14:53 | Progress Note ---
Assessment and Plan Assessment and plan: This is a 46-year-old man who presents with acute onset of nausea vomiting and postprandial abdominal pain found to have acute pancreatitis likely 2/2 to etoh abuse, admits to drinking 2 shots and half a beer daily 1. Acute pancreatitis Patient is nonalcoholic and CT and ultrasound did not show any cholelithiasis, this is most likely due to etoh, we'll also check a lipid panel, in the meantime patient received supportive therapy with IV fluids, pain medications and antiemetics, advance diet as tolerated 2. Community acquired pneumonia Continue antibiotics 3. End-stage renal disease on peritoneal dialysis Dialysis as per nephrology 4. Hypertension Continue current medications History Interval history: Abdominal pain and nausea and vomiting is slightly improved Hospitalist Physical - Physical exam Narrative exam: General: appears ill HEENT: dry mucus membranes cardiac: S1-S2 heard lungs: clear to auscultation, abdomen: Tenderness in the hypogastrium extremities: no edema clubbing or cyanosis Skin: no rash or lesion Neuro: no focal deficit Psych: appropriate behavior and mood, cognition intact - Constitutional Vitals: Temp Pulse Resp BP Pulse Ox 99.2 F 88 20 143/91 95 12/21/16 11:48 12/21/16 13:30 12/21/16 13:30 12/21/16 11:48 12/21/16 13:17 General appearance: Present: mild distress Results - Labs CBC & Chem 7: 12/20/16 06:36 12/21/16 07:20 Labs: Laboratory Last Values WBC 9.6 K/mm3 (4.5-11.0) 12/20/16 06:36 RBC 3.30 M/mm3 (3.65-5.03) L 12/20/16 06:36 Hgb 10.4 gm/dl (11.8-15.2) L 12/20/16 06:36 Hct 32.1 % (35.5-45.6) L 12/20/16 06:36 MCV 97 fl (84-94) H 12/20/16 06:36 MCH 32 pg (28-32) 12/20/16 06:36 MCHC 33 % (32-34) 12/20/16 06:36 RDW 16.9 % (13.2-15.2) H 12/20/16 06:36 Plt Count 265 K/mm3 (140-440) 12/20/16 06:36 Lymph % (Auto) 5.9 % (13.4-35.0) L 12/20/16 06:36 [place] % (Auto) 4.3 % (0.0-7.3) 12/20/16 06:36 Eos % (Auto) 0.0 % (0.0-4.3) 12/20/16 06:36 Baso % (Auto) 0.3 % (0.0-1.8) 12/20/16 06:36 Lymph # 0.6 K/mm3 (1.2-5.4) L 12/20/16 06:36 [place] # 0.4 K/mm3 (0.0-0.8) 12/20/16 06:36 Eos # 0.0 K/mm3 (0.0-0.4) 12/20/16 06:36 Baso # 0.0 K/mm3 (0.0-0.1) 12/20/16 06:36 Seg Neutrophils % 89.5 % (40.0-70.0) H 12/20/16 06:36 Seg Neutrophils # 8.6 K/mm3 (1.8-7.7) H 12/20/16 06:36 PT 13.2 Sec. (12.2-14.9) 12/20/16 06:36 INR 1.01 (0.87-1.13) 12/20/16 06:36 APTT 24.6 Sec. (24.2-36.6) 12/20/16 06:36 VBG pH 7.302 (7.320-7.420) L 12/20/16 07:45 Sodium 138 mmol/L (137-145) 12/21/16 07:20 Potassium 4.4 mmol/L (3.6-5.0) 12/21/16 07:20 Chloride 93.9 mmol/L (98-107) L 12/21/16 07:20 Carbon Dioxide 21 mmol/L (22-30) L 12/21/16 07:20 Anion Gap 28 mmol/L 12/21/16 07:20 BUN 89 mg/dL (9-20) H 12/21/16 07:20 Creatinine 24.1 mg/dL (0.8-1.5) H 12/21/16 07:20 Estimated GFR 2 ml/min 12/21/16 07:20 BUN/Creatinine Ratio 3.69 % 12/21/16 07:20 Glucose 134 mg/dL (75-100) H 12/21/16 07:20 Lactic Acid 0.9 mmol/L (0.7-2.0) 12/20/16 07:45 Calcium 8.7 mg/dL (8.4-10.2) 12/21/16 07:20 Phosphorus 5.7 mg/dL (2.5-4.5) H 12/20/16 06:36 Magnesium 2.1 mg/dL (1.7-2.3) 12/20/16 06:36 Total Bilirubin 0.4 mg/dL (0.1-1.2) 12/21/16 07:20 Direct Bilirubin < 0.2 mg/dL (0-0.2) 12/20/16 06:36 AST 17 units/L (5-40) 12/21/16 07:20 ALT 7 units/L (7-56) 12/21/16 07:20 Alkaline Phosphatase 38 units/L (35-129) 12/21/16 07:20 Total Creatine Kinase 121 units/L (55-170) 12/20/16 06:36 CK-MB (CK-2) 1.2 ng/mL (0.0-4.0) 12/20/16 06:36 CK-MB (CK-2) Rel Index 0.9 (0-4) 12/20/16 06:36 Troponin T < 0.010 ng/mL (0.00-0.029) 12/20/16 06:36 NT-Pro-B Natriuret Pep 6862 pg/mL (0-450) H 12/20/16 06:36 Total Protein 6.5 g/dL (6.3-8.2) 12/21/16 07:20 Albumin 3.2 g/dL (3.9-5) L 12/21/16 07:20 Albumin/Globulin Ratio 1.0 % 12/21/16 07:20 Lipase 950 units/L (13-60) H 12/21/16 07:20 Urine Color Yellow (Yellow) 12/20/16 08:00 Urine Turbidity Clear (Clear) 12/20/16 08:00 Urine pH 7.0 (5.0-7.0) 12/20/16 08:00 Ur Specific [place] 1.009 (1.003-1.030) 12/20/16 08:00 Urine Protein 100 mg/dl mg/dL (Negative) 12/20/16 08:00 Urine Glucose (UA) Neg mg/dL (Negative) 12/20/16 08:00 Urine Ketones Neg mg/dL (Negative) 12/20/16 08:00 Urine Blood Lg (Negative) 12/20/16 08:00 Urine Nitrite Neg (Negative) 12/20/16 08:00 Urine Bilirubin Neg (Negative) 12/20/16 08:00 Urine Urobilinogen < 2.0 mg/dL (<2.0) 12/20/16 08:00 Ur Leukocyte Esterase Sm (Negative) 12/20/16 08:00 Urine WBC (Auto) 7.0 /HPF (0.0-6.0) H 12/20/16 08:00 Urine RBC (Auto) 8.0 /HPF (0.0-6.0) 12/20/16 08:00 U Epithel Cells (Auto) < 1.0 /HPF (0-13.0) 12/20/16 08:00 Urine Mucus Few /HPF 12/20/16 08:00 Urine Opiates Screen Presumptive negative 12/20/16 08:00 Urine Methadone Screen Presumptive negative 12/20/16 08:00 Ur Barbiturates Screen Presumptive negative 12/20/16 08:00 Ur Phencyclidine Scrn Presumptive negative 12/20/16 08:00 Ur Amphetamines Screen Presumptive negative 12/20/16 08:00 U Benzodiazepines Scrn Presumptive negative 12/20/16 08:00 Urine Cocaine Screen Presumptive negative 12/20/16 08:00 U Marijuana (THC) Screen Presumptive negative 12/20/16 08:00 Drugs of Abuse Note Disclamer 12/20/16 08:00
--- NOTE | 2016-12-21 16:36 | Gastroenterology Progress Note ---
Assessment and Plan - Patient Problems (1) Acute pancreatitis Current Visit: Yes Status: Acute Qualifiers: Pancreatitis type: unspecified pancreatitis type Acute pancreatitis complication: unspecified Qualified Code(s): K85.90 - Acute pancreatitis without necrosis or infection, unspecified Plan to address problem: Acute pancreatitis is likely due to ETOH. Stable clinically, but has pain has not improved yet. NPO and supportive care with analgesia will be continued (2) End stage renal disease on dialysis Current Visit: Yes Status: Acute (3) Metabolic acidosis Current Visit: Yes Status: Acute (4) ESRD on peritoneal dialysis Current Visit: No Status: Acute Subjective Date of service: 12/21/16 Principal diagnosis: acute pancreatitis Interval history: Reports fairly severe pain still. No nausea or vomiting. Objective - Constitutional Vitals: Temp Pulse Resp BP Pulse Ox 98.1 F 94 H 20 147/97 95 12/21/16 15:59 12/21/16 15:59 12/21/16 15:59 12/21/16 15:59 12/21/16 13:17 General appearance: other (moderate distress due to pain) - EENT ENT: hearing intact, clear oral mucosa, dentition normal - Neck Neck: supple, normal ROM - Respiratory Respiratory effort: normal Respiratory: bilateral: CTA - Cardiovascular Rhythm: regular - Gastrointestinal General gastrointestinal: Present: soft, tender, non-distended, normal bowel sounds - Neurologic Neurological: alert and oriented x3 - Labs CBC & Chem 7: 12/20/16 06:36 12/21/16 07:20 Labs: Laboratory Results - last 24 hr 12/21/16 12/21/16 07:20 07:20 Sodium 138 Potassium 4.4 Chloride 93.9 L Carbon Dioxide 21 L Anion Gap 28 BUN 89 H Creatinine 24.1 H Estimated GFR 2 BUN/Creatinine Ratio 3.69 Glucose 134 H Calcium 8.7 Total Bilirubin 0.4 AST 17 ALT 7 Alkaline Phosphatase 38 Total Protein 6.5 Albumin 3.2 L Albumin/Globulin Ratio 1.0 Lipase 950 H
[2016-12-21] MEDS: TYLENOL PO PRN (17:43)
[2016-12-21] MEDS: ROCEPHIN/NS 1 GM/50 ML 1 GM/50 ML BAG IV SCH (17:45)
[2016-12-21] MEDS: ZITHROMAX 500 MG in NACL 0.9% 250ML 250 ML IV SCH (18:58)
[2016-12-21] MEDS: SODIUM BICARBONATE 150 MEQ in D5W 1,000 ML IV SCH (22:11)
[2016-12-22] MEDS: TYLENOL PO PRN ×3 (00:34→20:17)
[2016-12-22] MEDS: ZOFRAN IV PRN ×3 (00:35→18:08)
[2016-12-22] MEDS: DILAUDID IV PRN ×6 (01:16→21:25)
[2016-12-22] MEDS: DUONEB 0.5 MG-3 MG/3 ML SOLN IH SCH ×4 (01:41→19:34)
[2016-12-22] MEDS: DIANEAL LOW CALCIUM W/1.5% DEXTROSE IP SCH ×4 (06:00→18:26)
[2016-12-22] MEDS: CATAPRES PO SCH ×3 (08:45→20:17)
[2016-12-22] MEDS: RENVELA PO SCH ×4 (08:45→16:11)
[2016-12-22] MEDS: PROCARDIA XL PO SCH (09:24)
[2016-12-22] MEDS: LOVENOX SUB-Q SCH (09:24)
[2016-12-22] MEDS: ROCALTROL PO SCH ×2 (09:25→21:26)
[2016-12-22] MEDS: ROCEPHIN/NS 1 GM/50 ML 1 GM/50 ML BAG IV SCH (10:44)
[2016-12-22] MEDS: ZITHROMAX 500 MG in NACL 0.9% 250ML 250 ML IV SCH (11:04)
--- NOTE | 2016-12-22 11:13 | Progress Note ---
Assessment and Plan Assessment: 1. acute pancreatitis 2. ESRD on PD 3. Anemia of ESRD 4. Hypertension 5. metabolic acidosis 6. Secondary hyperparathyroidism Plan/Recommendations: 1. pt is NPO, follow GI recommendations 2. continue IV D5 + 150meq Na bicarb at 42ml/hr 3. continue CAPD, continue 4 cycles w/ 1.5dineal solution, dwell volume 2L 4. continue sensipar/renvela for treatment of secondary hyperparathyrodism 5. will monitor electrolytes and renal parameters and make further recommendations Subjective Date of service: 12/22/16 Principal diagnosis: acute pancreatitis Interval history: Patient awake, alert, in NAD, reports improving abd pain. tolerating PD well. Objective - Vital Signs Vital signs: Vital Signs - 12hr 12/22/16 12/22/16 12/22/16 00:34 01:16 01:17 Temperature Pulse Rate Pulse Rate [ Anterior Bilateral Throughout] Pulse Rate [ Right Radial] Respiratory 20 18 18 Rate Respiratory Rate [Anterior Bilateral Throughout] Blood Pressure Blood Pressure [Right Arm] O2 Sat by Pulse Oximetry 12/22/16 12/22/16 12/22/16 01:41 01:46 01:51 Temperature Pulse Rate Pulse Rate [ 101 H 104 H Anterior Bilateral Throughout] Pulse Rate [ Right Radial] Respiratory 18 Rate Respiratory 18 18 Rate [Anterior Bilateral Throughout] Blood Pressure Blood Pressure [Right Arm] O2 Sat by Pulse Oximetry 12/22/16 12/22/16 12/22/16 06:10 06:40 07:14 Temperature Pulse Rate Pulse Rate [ Anterior Bilateral Throughout] Pulse Rate [ Right Radial] Respiratory 18 18 18 Rate Respiratory Rate [Anterior Bilateral Throughout] Blood Pressure Blood Pressure [Right Arm] O2 Sat by Pulse Oximetry 12/22/16 12/22/16 12/22/16 08:21 08:45 09:56 Temperature 99.2 F Pulse Rate 96 H Pulse Rate [ 94 H Anterior Bilateral Throughout] Pulse Rate [ 96 H Right Radial] Respiratory 16 Rate Respiratory 19 Rate [Anterior Bilateral Throughout] Blood Pressure 145/93 Blood Pressure 145/93 [Right Arm] O2 Sat by Pulse 95 Oximetry 12/22/16 10:10 Temperature Pulse Rate Pulse Rate [ 92 H Anterior Bilateral Throughout] Pulse Rate [ Right Radial] Respiratory Rate Respiratory 18 Rate [Anterior Bilateral Throughout] Blood Pressure Blood Pressure [Right Arm] O2 Sat by Pulse Oximetry - General Appearance General appearance: well-developed, well-nourished, appears stated age EENT: ATNC, PERRL, mucous membranes moist Neck: no JVD Respiratory: Present: Clear to Ascultation Cardiology: regular, S1S2 Gastrointestinal: normoactive bowel sounds, tenderness Integumentary: no rash, other (no edema ) Neurologic: no focal deficit, alert and oriented x3, strength 5/5, CN 3-12 intact Psychiatric: mood/affect appropriate, cooperative - Lab 12/20/16 06:36 12/21/16 07:20 Most recent lab results Calcium 8.7 mg/dL (8.4-10.2) 12/21/16 07:20 Phosphorus 5.7 mg/dL (2.5-4.5) H 12/20/16 06:36 Magnesium 2.1 mg/dL (1.7-2.3) 12/20/16 06:36
--- NOTE | 2016-12-22 12:40 | Progress Note ---
Assessment and Plan Assessment and plan: This is a 46-year-old man who presents with a history of ESRD on peritoneal dialysis acute onset of nausea vomiting and postprandial abdominal pain found to have acute pancreatitis likely 2/2 to etoh abuse, admits to drinking 2 shots and half a beer daily * Acute pancreatitis secondary to alcohol abuse * Community-acquired pneumonia * End-stage renal disease on peritoneal dialysis * Metabolic acidosis secondary to end-stage renal disease * Hypertension * Secondary hyperparathyroidism * Alcohol abuse and dependence Plan * Continue supportive care, antiemetics, analgesia. Patient nothing by mouth but will switch once he is ok to trial clear liquids * CT abdomen negative for any cholelithiasis. * continue abx * Continue IV D5 NS * Continue peritoneal dialysis I did speak with the ultrasound technician in respect to the elevated BUN and creatinine * Monitor his electrolytes * Extensive counseling provided to the patient the need to quit alcohol patient verbalized understanding resources provided to the patient. * DVT/GI prophylaxis * Discussed in detail with patient. Hospitalist Physical - Constitutional Vitals: Temp Pulse Resp BP Pulse Ox 98.2 F 96 H 18 119/72 95 12/22/16 11:38 12/22/16 11:38 12/22/16 11:38 12/22/16 11:38 12/22/16 08:21 General appearance: Present: mild distress Results - Labs CBC & Chem 7: 12/20/16 06:36 12/21/16 07:20 Labs: Laboratory Last Values WBC 9.6 K/mm3 (4.5-11.0) 12/20/16 06:36 RBC 3.30 M/mm3 (3.65-5.03) L 12/20/16 06:36 Hgb 10.4 gm/dl (11.8-15.2) L 12/20/16 06:36 Hct 32.1 % (35.5-45.6) L 12/20/16 06:36 MCV 97 fl (84-94) H 12/20/16 06:36 MCH 32 pg (28-32) 12/20/16 06:36 MCHC 33 % (32-34) 12/20/16 06:36 RDW 16.9 % (13.2-15.2) H 12/20/16 06:36 Plt Count 265 K/mm3 (140-440) 12/20/16 06:36 Lymph % (Auto) 5.9 % (13.4-35.0) L 12/20/16 06:36 [place] % (Auto) 4.3 % (0.0-7.3) 12/20/16 06:36 Eos % (Auto) 0.0 % (0.0-4.3) 12/20/16 06:36 Baso % (Auto) 0.3 % (0.0-1.8) 12/20/16 06:36 Lymph # 0.6 K/mm3 (1.2-5.4) L 12/20/16 06:36 [place] # 0.4 K/mm3 (0.0-0.8) 12/20/16 06:36 Eos # 0.0 K/mm3 (0.0-0.4) 12/20/16 06:36 Baso # 0.0 K/mm3 (0.0-0.1) 12/20/16 06:36 Seg Neutrophils % 89.5 % (40.0-70.0) H 12/20/16 06:36 Seg Neutrophils # 8.6 K/mm3 (1.8-7.7) H 12/20/16 06:36 PT 13.2 Sec. (12.2-14.9) 12/20/16 06:36 INR 1.01 (0.87-1.13) 12/20/16 06:36 APTT 24.6 Sec. (24.2-36.6) 12/20/16 06:36 VBG pH 7.302 (7.320-7.420) L 12/20/16 07:45 Sodium 138 mmol/L (137-145) 12/21/16 07:20 Potassium 4.4 mmol/L (3.6-5.0) 12/21/16 07:20 Chloride 93.9 mmol/L (98-107) L 12/21/16 07:20 Carbon Dioxide 21 mmol/L (22-30) L 12/21/16 07:20 Anion Gap 28 mmol/L 12/21/16 07:20 BUN 89 mg/dL (9-20) H 12/21/16 07:20 Creatinine 24.1 mg/dL (0.8-1.5) H 12/21/16 07:20 Estimated GFR 2 ml/min 12/21/16 07:20 BUN/Creatinine Ratio 3.69 % 12/21/16 07:20 Glucose 134 mg/dL (75-100) H 12/21/16 07:20 Lactic Acid 0.9 mmol/L (0.7-2.0) 12/20/16 07:45 Calcium 8.7 mg/dL (8.4-10.2) 12/21/16 07:20 Phosphorus 5.7 mg/dL (2.5-4.5) H 12/20/16 06:36 Magnesium 2.1 mg/dL (1.7-2.3) 12/20/16 06:36 Total Bilirubin 0.4 mg/dL (0.1-1.2) 12/21/16 07:20 Direct Bilirubin < 0.2 mg/dL (0-0.2) 12/20/16 06:36 AST 17 units/L (5-40) 12/21/16 07:20 ALT 7 units/L (7-56) 12/21/16 07:20 Alkaline Phosphatase 38 units/L (35-129) 12/21/16 07:20 Total Creatine Kinase 121 units/L (55-170) 12/20/16 06:36 CK-MB (CK-2) 1.2 ng/mL (0.0-4.0) 12/20/16 06:36 CK-MB (CK-2) Rel Index 0.9 (0-4) 12/20/16 06:36 Troponin T < 0.010 ng/mL (0.00-0.029) 12/20/16 06:36 NT-Pro-B Natriuret Pep 6862 pg/mL (0-450) H 12/20/16 06:36 Total Protein 6.5 g/dL (6.3-8.2) 12/21/16 07:20 Albumin 3.2 g/dL (3.9-5) L 12/21/16 07:20 Albumin/Globulin Ratio 1.0 % 12/21/16 07:20 Triglycerides 49 mg/dL (2-149) 12/22/16 05:37 Cholesterol 87 mg/dL (50-199) 12/22/16 05:37 LDL Cholesterol Direct 40 mg/dL (50-130) L 12/22/16 05:37 HDL Cholesterol 38 mg/dL (40-59) L 12/22/16 05:37 Cholesterol/HDL Ratio 2.28 % 12/22/16 05:37 Lipase 950 units/L (13-60) H 12/21/16 07:20 Urine Color Yellow (Yellow) 12/20/16 08:00 Urine Turbidity Clear (Clear) 12/20/16 08:00 Urine pH 7.0 (5.0-7.0) 12/20/16 08:00 Ur Specific [place] 1.009 (1.003-1.030) 12/20/16 08:00 Urine Protein 100 mg/dl mg/dL (Negative) 12/20/16 08:00 Urine Glucose (UA) Neg mg/dL (Negative) 12/20/16 08:00 Urine Ketones Neg mg/dL (Negative) 12/20/16 08:00 Urine Blood Lg (Negative) 12/20/16 08:00 Urine Nitrite Neg (Negative) 12/20/16 08:00 Urine Bilirubin Neg (Negative) 12/20/16 08:00 Urine Urobilinogen < 2.0 mg/dL (<2.0) 12/20/16 08:00 Ur Leukocyte Esterase Sm (Negative) 12/20/16 08:00 Urine WBC (Auto) 7.0 /HPF (0.0-6.0) H 12/20/16 08:00 Urine RBC (Auto) 8.0 /HPF (0.0-6.0) 12/20/16 08:00 U Epithel Cells (Auto) < 1.0 /HPF (0-13.0) 12/20/16 08:00 Urine Mucus Few /HPF 12/20/16 08:00 Urine Opiates Screen Presumptive negative 12/20/16 08:00 Urine Methadone Screen Presumptive negative 12/20/16 08:00 Ur Barbiturates Screen Presumptive negative 12/20/16 08:00 Ur Phencyclidine Scrn Presumptive negative 12/20/16 08:00 Ur Amphetamines Screen Presumptive negative 12/20/16 08:00 U Benzodiazepines Scrn Presumptive negative 12/20/16 08:00 Urine Cocaine Screen Presumptive negative 12/20/16 08:00 U Marijuana (THC) Screen Presumptive negative 12/20/16 08:00 Drugs of Abuse Note Disclamer 12/20/16 08:00
--- NOTE | 2016-12-22 13:42 | Gastroenterology Progress Note ---
Assessment and Plan 1. acute pancreatitis - CT, labs, and US findings reviewed. likely 2/2 alcohol given pt's reported history of alcohol abuse. mild clinical improvement from yesterday it appears. Consider trial of clear liquid diet tonight, pain management per primary team 2. ESRD on PD Subjective Date of service: 12/22/16 Principal diagnosis: acute pancreatitis Interval history: pt seen and examined. receiving PD. Reports mild improvement in abdominal pain , but still requiring frequent pain meds. Denies n/v/fevers. Objective - Exam Narrative Exam: Gen: NAD CV: RRR Lungs: CTAB Abd: soft, +epigastric ttp, + pd cather, nd, +bs Ext: no edema - Constitutional Vitals: Temp Pulse Resp BP Pulse Ox 98.2 F 96 H 18 119/72 95 12/22/16 11:38 12/22/16 11:38 12/22/16 11:38 12/22/16 11:38 12/22/16 08:21 - Labs CBC & Chem 7: 12/20/16 06:36 12/21/16 07:20 Labs: Laboratory Results - last 24 hr 12/22/16 05:37 Triglycerides 49 Cholesterol 87 LDL Cholesterol Direct 40 L HDL Cholesterol 38 L Cholesterol/HDL Ratio 2.28 - Imaging CT scan: report reviewed Ultrasound: report reviewed
[2016-12-22] MEDS ORDERED: PROVENTIL IH PRN (16:58)
[2016-12-23] MEDS: ZOFRAN IV PRN ×3 (02:17→13:20)
[2016-12-23] MEDS: TYLENOL PO PRN ×2 (02:17→23:37)
[2016-12-23] MEDS: DIANEAL LOW CALCIUM W/1.5% DEXTROSE IP SCH ×4 (02:18→17:13)
[2016-12-23] MEDS: DILAUDID IV PRN ×6 (03:08→21:00)
[2016-12-23 07:18] LABS: BUN/Creatinine Ratio 4.12; Chloride 89.5 mmol/L (98-107); Potassium 4.2 mmol/L (3.6-5.0)
[2016-12-23] MEDS: DUONEB 0.5 MG-3 MG/3 ML SOLN IH SCH ×3 (07:32→20:46)
[2016-12-23] MEDS: RENVELA PO SCH ×3 (08:04→17:36)
[2016-12-23] MEDS: ROCALTROL PO SCH ×2 (09:04→22:01)
[2016-12-23] MEDS: CATAPRES PO SCH ×3 (09:06→21:01)
[2016-12-23] MEDS: PROCARDIA XL PO SCH (09:07)
--- NOTE | 2016-12-23 09:18 | Gastroenterology Progress Note ---
Assessment and Plan - Patient Problems (1) Acute pancreatitis Current Visit: Yes Status: Acute Qualifiers: Pancreatitis type: unspecified pancreatitis type Acute pancreatitis complication: unspecified Qualified Code(s): K85.90 - Acute pancreatitis without necrosis or infection, unspecified Plan to address problem: Improving slowly. Pain level is less. Less nausea. Would not progress diet today. (2) End stage renal disease on dialysis Current Visit: Yes Status: Acute (3) Metabolic acidosis Current Visit: Yes Status: Acute (4) ESRD on peritoneal dialysis Current Visit: No Status: Acute Subjective Date of service: 12/23/16 Principal diagnosis: acute pancreatitis Interval history: The patient reports feeling better, but still mostly has a 6 out of 10 level. No vomiting. Objective - Constitutional Vitals: Temp Pulse Resp BP Pulse Ox 99.0 F 94 H 18 144/93 100 12/22/16 23:00 12/23/16 09:06 12/23/16 08:00 12/23/16 09:06 12/23/16 08:54 General appearance: no acute distress - EENT ENT: hearing intact, clear oral mucosa, dentition normal - Neck Neck: supple, normal ROM - Respiratory Respiratory effort: normal Respiratory: bilateral: CTA - Cardiovascular Rhythm: regular - Extremities Extremities: pulses intact, No edema, normal color, Full ROM - Gastrointestinal General gastrointestinal: Present: tender, non-distended, normal bowel sounds. Absent: hepatomegaly, splenomegaly - Integumentary Integumentary: Present: clear, warm, dry - Neurologic Neurological: alert and oriented x3 - Labs CBC & Chem 7: 12/20/16 06:36 12/23/16 06:41 Labs: Laboratory Results - last 24 hr 12/23/16 06:41 Sodium 137 Potassium 4.2 Chloride 89.5 L Carbon Dioxide 29 D Anion Gap 23 BUN 83 H Creatinine 20.1 H Estimated GFR 3 BUN/Creatinine Ratio 4.12 Glucose 109 H Calcium 8.0 L
[2016-12-23] MEDS: LOVENOX SUB-Q SCH (09:23)
--- NOTE | 2016-12-23 10:38 | Progress Note ---
Assessment and Plan Assessment: 1. acute pancreatitis 2. ESRD on PD 3. Anemia of ESRD 4. Hypertension 5. metabolic acidosis 6. Secondary hyperparathyroidism Plan/Recommendations: 1. advance diet as per GI 2. pt on clear liquid diet. will d/c IVF 3. continue CAPD, continue 4 cycles w/ 1.5dineal solution, dwell volume 2L 4. continue sensipar/renvela for treatment of secondary hyperparathyrodism Subjective Date of service: 12/23/16 Principal diagnosis: acute pancreatitis Interval history: patient awake, alert, reports improving abd pain, on clear liquid diet Objective - Vital Signs Vital signs: Vital Signs - 12hr 12/22/16 12/23/16 12/23/16 23:00 07:50 08:00 Temperature 99.0 F Pulse Rate Pulse Rate [ 97 H 96 H Anterior Bilateral Throughout] Pulse Rate [ 97 H Right Radial] Respiratory 18 Rate Respiratory 18 18 Rate [Anterior Bilateral Throughout] Blood Pressure Blood Pressure 128/85 [Right Arm] O2 Sat by Pulse 100 Oximetry 12/23/16 12/23/16 12/23/16 08:17 08:54 09:06 Temperature 98.3 F Pulse Rate 94 H Pulse Rate [ Anterior Bilateral Throughout] Pulse Rate [ 94 H Right Radial] Respiratory 20 Rate Respiratory Rate [Anterior Bilateral Throughout] Blood Pressure 144/93 Blood Pressure 144/93 [Right Arm] O2 Sat by Pulse 97 100 Oximetry - General Appearance General appearance: well-developed, well-nourished, appears stated age EENT: ATNC, PERRL, mucous membranes moist Neck: no JVD Respiratory: Present: Clear to Ascultation Cardiology: regular, S1S2 Gastrointestinal: normal, normoactive bowel sounds Integumentary: no rash, other (no edema ) Neurologic: no focal deficit, alert and oriented x3, strength 5/5, CN 3-12 intact Psychiatric: mood/affect appropriate, cooperative - Lab 12/20/16 06:36 12/23/16 06:41 Most recent lab results Calcium 8.0 mg/dL (8.4-10.2) L 12/23/16 06:41 Phosphorus 5.7 mg/dL (2.5-4.5) H 12/20/16 06:36 Magnesium 2.1 mg/dL (1.7-2.3) 12/20/16 06:36
[2016-12-23] MEDS: ROCEPHIN/NS 1 GM/50 ML 1 GM/50 ML BAG IV SCH (11:37)
[2016-12-23] MEDS: ZITHROMAX 500 MG in NACL 0.9% 250ML 250 ML IV SCH (12:55)
--- NOTE | 2016-12-23 13:52 | Progress Note ---
Assessment and Plan Assessment and plan: This is a 46-year-old man who presents with a history of ESRD on peritoneal dialysis acute onset of nausea vomiting and postprandial abdominal pain found to have acute pancreatitis likely 2/2 to etoh abuse, admits to drinking 2 shots and half a beer daily * Acute pancreatitis secondary to alcohol abuse * Community-acquired pneumonia * End-stage renal disease on peritoneal dialysis * Metabolic acidosis secondary to end-stage renal disease * Hypertension * Secondary hyperparathyroidism * Alcohol abuse and dependence Plan * Continue supportive care, antiemetics, analgesia. Start clear liquid diet today. If tolerating diet will anticipate Discharge in a.m. * CT abdomen negative for any cholelithiasis. * continue abx * Continue IV D5 NS * Continue peritoneal dialysis, board finisher believes this is working for the patient. * Monitor his electrolytes * Extensive counseling provided to the patient the need to quit alcohol patient verbalized understanding resources provided to the patient. * DVT/GI prophylaxis * Discussed in detail with patient. History Interval history: Patient seen and examined this morning in no acute distress, reports less pain today. We'll attempt to eat. Denies any chest pain, nausea, vomiting, diarrhea No fever noted blood pressure controlled No adverse events reported to me by nursing staff Hospitalist Physical - Physical exam Narrative exam: VITAL SIGNS: Reviewed. GENERAL: The patient appeared well nourished and normally developed. Vital signs as documented. HEAD: No signs of head trauma. EYES: Pupils are equal. Extraocular motions intact. EARS: Hearing grossly intact. MOUTH: Oropharynx is normal. NECK: No adenopathy, no JVD. CHEST: Chest with clear breath sounds bilaterally. No wheezes, rales, or rhonchi. CARDIAC: Regular rate and rhythm. S1 and S2, without murmurs, gallops, or rubs. VASCULAR: No Edema. Peripheral pulses normal and equal in all extremities. ABDOMEN: Soft, without detectable tenderness. No sign of distention. No rebound or guarding, and no masses palpated. Bowel Sounds normal. MUSCULOSKELETAL: Good range of motion of all major joints. Extremities without clubbing, cyanosis or edema. NEUROLOGIC EXAM: Alert and oriented x 3. No focal sensory or strength deficits. Speech normal. Follows commands. PSYCHIATRIC: Mood normal. SKIN: No rash or lesions. - Constitutional Vitals: Temp Pulse Resp BP Pulse Ox 98.3 F 94 H 20 144/93 100 12/23/16 08:17 12/23/16 09:06 12/23/16 08:17 12/23/16 09:06 12/23/16 08:54 General appearance: Present: mild distress Results - Labs CBC & Chem 7: 12/20/16 06:36 12/23/16 06:41 Labs: Laboratory Last Values WBC 9.6 K/mm3 (4.5-11.0) 12/20/16 06:36 RBC 3.30 M/mm3 (3.65-5.03) L 12/20/16 06:36 Hgb 10.4 gm/dl (11.8-15.2) L 12/20/16 06:36 Hct 32.1 % (35.5-45.6) L 12/20/16 06:36 MCV 97 fl (84-94) H 12/20/16 06:36 MCH 32 pg (28-32) 12/20/16 06:36 MCHC 33 % (32-34) 12/20/16 06:36 RDW 16.9 % (13.2-15.2) H 12/20/16 06:36 Plt Count 265 K/mm3 (140-440) 12/20/16 06:36 Lymph % (Auto) 5.9 % (13.4-35.0) L 12/20/16 06:36 [place] % (Auto) 4.3 % (0.0-7.3) 12/20/16 06:36 Eos % (Auto) 0.0 % (0.0-4.3) 12/20/16 06:36 Baso % (Auto) 0.3 % (0.0-1.8) 12/20/16 06:36 Lymph # 0.6 K/mm3 (1.2-5.4) L 12/20/16 06:36 [place] # 0.4 K/mm3 (0.0-0.8) 12/20/16 06:36 Eos # 0.0 K/mm3 (0.0-0.4) 12/20/16 06:36 Baso # 0.0 K/mm3 (0.0-0.1) 12/20/16 06:36 Seg Neutrophils % 89.5 % (40.0-70.0) H 12/20/16 06:36 Seg Neutrophils # 8.6 K/mm3 (1.8-7.7) H 12/20/16 06:36 PT 13.2 Sec. (12.2-14.9) 12/20/16 06:36 INR 1.01 (0.87-1.13) 12/20/16 06:36 APTT 24.6 Sec. (24.2-36.6) 12/20/16 06:36 VBG pH 7.302 (7.320-7.420) L 12/20/16 07:45 Sodium 137 mmol/L (137-145) 12/23/16 06:41 Potassium 4.2 mmol/L (3.6-5.0) 12/23/16 06:41 Chloride 89.5 mmol/L (98-107) L 12/23/16 06:41 Carbon Dioxide 29 mmol/L (22-30) D 12/23/16 06:41 Anion Gap 23 mmol/L 12/23/16 06:41 BUN 83 mg/dL (9-20) H 12/23/16 06:41 Creatinine 20.1 mg/dL (0.8-1.5) H 12/23/16 06:41 Estimated GFR 3 ml/min 12/23/16 06:41 BUN/Creatinine Ratio 4.12 % 12/23/16 06:41 Glucose 109 mg/dL (75-100) H 12/23/16 06:41 Lactic Acid 0.9 mmol/L (0.7-2.0) 12/20/16 07:45 Calcium 8.0 mg/dL (8.4-10.2) L 12/23/16 06:41 Phosphorus 5.7 mg/dL (2.5-4.5) H 12/20/16 06:36 Magnesium 2.1 mg/dL (1.7-2.3) 12/20/16 06:36 Total Bilirubin 0.4 mg/dL (0.1-1.2) 12/21/16 07:20 Direct Bilirubin < 0.2 mg/dL (0-0.2) 12/20/16 06:36 AST 17 units/L (5-40) 12/21/16 07:20 ALT 7 units/L (7-56) 12/21/16 07:20 Alkaline Phosphatase 38 units/L (35-129) 12/21/16 07:20 Total Creatine Kinase 121 units/L (55-170) 12/20/16 06:36 CK-MB (CK-2) 1.2 ng/mL (0.0-4.0) 12/20/16 06:36 CK-MB (CK-2) Rel Index 0.9 (0-4) 12/20/16 06:36 Troponin T < 0.010 ng/mL (0.00-0.029) 12/20/16 06:36 NT-Pro-B Natriuret Pep 6862 pg/mL (0-450) H 12/20/16 06:36 Total Protein 6.5 g/dL (6.3-8.2) 12/21/16 07:20 Albumin 3.2 g/dL (3.9-5) L 12/21/16 07:20 Albumin/Globulin Ratio 1.0 % 12/21/16 07:20 Triglycerides 49 mg/dL (2-149) 12/22/16 05:37 Cholesterol 87 mg/dL (50-199) 12/22/16 05:37 LDL Cholesterol Direct 40 mg/dL (50-130) L 12/22/16 05:37 HDL Cholesterol 38 mg/dL (40-59) L 12/22/16 05:37 Cholesterol/HDL Ratio 2.28 % 12/22/16 05:37 Lipase 950 units/L (13-60) H 12/21/16 07:20 Urine Color Yellow (Yellow) 12/20/16 08:00 Urine Turbidity Clear (Clear) 12/20/16 08:00 Urine pH 7.0 (5.0-7.0) 12/20/16 08:00 Ur Specific [place] 1.009 (1.003-1.030) 12/20/16 08:00 Urine Protein 100 mg/dl mg/dL (Negative) 12/20/16 08:00 Urine Glucose (UA) Neg mg/dL (Negative) 12/20/16 08:00 Urine Ketones Neg mg/dL (Negative) 12/20/16 08:00 Urine Blood Lg (Negative) 12/20/16 08:00 Urine Nitrite Neg (Negative) 12/20/16 08:00 Urine Bilirubin Neg (Negative) 12/20/16 08:00 Urine Urobilinogen < 2.0 mg/dL (<2.0) 12/20/16 08:00 Ur Leukocyte Esterase Sm (Negative) 12/20/16 08:00 Urine WBC (Auto) 7.0 /HPF (0.0-6.0) H 12/20/16 08:00 Urine RBC (Auto) 8.0 /HPF (0.0-6.0) 12/20/16 08:00 U Epithel Cells (Auto) < 1.0 /HPF (0-13.0) 12/20/16 08:00 Urine Mucus Few /HPF 12/20/16 08:00 Urine Opiates Screen Presumptive negative 12/20/16 08:00 Urine Methadone Screen Presumptive negative 12/20/16 08:00 Ur Barbiturates Screen Presumptive negative 12/20/16 08:00 Ur Phencyclidine Scrn Presumptive negative 12/20/16 08:00 Ur Amphetamines Screen Presumptive negative 12/20/16 08:00 U Benzodiazepines Scrn Presumptive negative 12/20/16 08:00 Urine Cocaine Screen Presumptive negative 12/20/16 08:00 U Marijuana (THC) Screen Presumptive negative 12/20/16 08:00 Drugs of Abuse Note Disclamer 12/20/16 08:00
[2016-12-24] MEDS: DIANEAL LOW CALCIUM W/1.5% DEXTROSE IP SCH ×5 (00:18→23:51)
[2016-12-24] MEDS: DILAUDID IV PRN ×7 (00:33→22:43)
[2016-12-24 06:18] LABS: Hematocrit 23.5 % (35.5-45.6); Hemoglobin 7.8 gm/dl (11.8-15.2); Mean Corpuscular HGB Conc 33 % (32-34); Mean Corpuscular Hemoglobin 32 pg (28-32); Mean Corpuscular Volume 96 fl (84-94); Platelet Count 217 K/mm3 (140-440); Red Blood Count 2.45 M/mm3 (3.65-5.03); Red Cell Distribution Width 18.4 % (13.2-15.2); White Blood Count 9.3 K/mm3 (4.5-11.0)
[2016-12-24 06:43] LABS: Albumin 2.2 g/dL (3.9-5); Albumin/Globulin Ratio 0.7 %; Bilirubin,Total 0.3 mg/dL (0.1-1.2); Calcium 8.1 mg/dL (8.4-10.2); Chloride 89.9 mmol/L (98-107); Total Protein 5.5 g/dL (6.3-8.2)
[2016-12-24] MEDS: DUONEB 0.5 MG-3 MG/3 ML SOLN IH SCH ×3 (07:58→20:37)
[2016-12-24] MEDS: ROCEPHIN/NS 1 GM/50 ML 1 GM/50 ML BAG IV SCH (09:47)
[2016-12-24] MEDS: RENVELA PO SCH ×3 (09:48→18:11)
[2016-12-24] MEDS: LOVENOX SUB-Q SCH (09:48)
[2016-12-24] MEDS: CATAPRES PO SCH ×3 (09:48→23:50)
[2016-12-24] MEDS: PROCARDIA XL PO SCH (09:49)
--- NOTE | 2016-12-24 10:19 | Progress Note ---
Assessment and Plan Assessment: 1. acute pancreatitis 2. ESRD on PD 3. Anemia of ESRD 4. Hypertension 5. metabolic acidosis 6. Secondary hyperparathyroidism 7. Constipation Plan/Recommendations: 1. advance diet as tolerated. 2. pt on clear liquid diet. will d/c IVF 3. continue CAPD, continue 4 cycles w/ 1.5dineal solution, dwell volume 2L. improving azotemia noted. 4. continue sensipar/renvela for treatment of secondary hyperparathyrodism 5. lactulose prn for constipation D/w Dr Hein, pt regarding renal care plan Subjective Date of service: 12/24/16 Principal diagnosis: acute pancreatitis Interval history: patient awake, alert, on clear liquids, with persistent intermittent abdominal/ back pain w/ meals. Objective - Vital Signs Vital signs: Vital Signs - 12hr 12/24/16 12/24/16 12/24/16 00:27 07:58 07:59 Temperature 98.9 F Pulse Rate Pulse Rate [ 88 Anterior Bilateral Throughout] Pulse Rate [ 106 H Right Radial] Respiratory 18 Rate Respiratory 18 Rate [Anterior Bilateral Throughout] Blood Pressure Blood Pressure 131/90 [Right Arm] O2 Sat by Pulse 92 93 Oximetry 12/24/16 12/24/16 12/24/16 08:05 08:08 09:48 Temperature 98.2 F Pulse Rate 90 Pulse Rate [ 90 Anterior Bilateral Throughout] Pulse Rate [ 96 H Right Radial] Respiratory 18 Rate Respiratory 18 Rate [Anterior Bilateral Throughout] Blood Pressure 144/90 Blood Pressure 144/90 [Right Arm] O2 Sat by Pulse 93 Oximetry - General Appearance General appearance: well-developed, well-nourished, appears stated age EENT: ATNC, PERRL, mucous membranes moist Neck: no JVD Respiratory: Present: Clear to Ascultation Cardiology: regular, S1S2 Gastrointestinal: normal, normoactive bowel sounds Integumentary: no rash, other (no edema ) Neurologic: no focal deficit, alert and oriented x3, strength 5/5, CN 3-12 intact Psychiatric: mood/affect appropriate, cooperative - Lab 12/24/16 05:32 12/24/16 05:32 Most recent lab results Calcium 8.1 mg/dL (8.4-10.2) L 12/24/16 05:32 Phosphorus 5.7 mg/dL (2.5-4.5) H 12/20/16 06:36 Magnesium 2.1 mg/dL (1.7-2.3) 12/20/16 06:36
[2016-12-24] MEDS ORDERED: CEPHULAC PO ONE (11:00)
[2016-12-24] MEDS: ROCALTROL PO SCH ×2 (11:36→22:43)
[2016-12-24] MEDS: ZITHROMAX 500 MG in NACL 0.9% 250ML 250 ML IV SCH (11:37)
--- NOTE | 2016-12-24 15:31 | Gastroenterology Progress Note ---
Assessment and Plan acute pancreatitis - slow improvement in clinical course. keep on clears for time being. if symptoms remain the same with inability to tolerate po, may need repeat CT scan to evaluate for necrosis or other changes/complications. Constipation - likely from pain meds, start bowel regimen daily Subjective Date of service: 12/24/16 Principal diagnosis: acute pancreatitis Interval history: pt with slight improvement in abd pain. tolerated some clears. had episode of n/v this morning. no bm since admission Objective - Constitutional Vitals: Temp Pulse Resp BP Pulse Ox 98.9 F 99 H 18 129/83 94 12/24/16 12:10 12/24/16 14:18 12/24/16 14:00 12/24/16 14:18 12/24/16 12:10 General appearance: no acute distress - Respiratory Respiratory effort: normal Respiratory: bilateral: CTA - Cardiovascular Rhythm: regular Heart Sounds: Present: S1 & S2 - Gastrointestinal General gastrointestinal: Present: soft, tender (+ epigastric ttp, no rebound/ guarding) - Neurologic Neurological: alert and oriented x3 - Psychiatric Psychiatric: appropriate mood/affect - Labs CBC & Chem 7: 12/24/16 05:32 12/24/16 05:32 Labs: Laboratory Results - last 24 hr 12/23/16 12/24/16 12/24/16 21:04 05:32 05:32 WBC 9.3 RBC 2.45 L Hgb 7.8 L Hct 23.5 L MCV 96 H MCH 32 MCHC 33 RDW 18.4 H Plt Count 217 Sodium 138 Potassium 4.0 Chloride 89.9 L Carbon Dioxide 32 H Anion Gap 20 BUN 78 H Creatinine 19.5 H Estimated GFR 3 BUN/Creatinine Ratio 4.00 Glucose 98 POC Glucose 99 Calcium 8.1 L Total Bilirubin 0.3 AST 24 ALT 21 Alkaline Phosphatase 44 Total Protein 5.5 L Albumin 2.2 L Albumin/Globulin Ratio 0.7
--- NOTE | 2016-12-24 15:52 | Progress Note ---
Assessment and Plan Assessment and plan: This is a 46-year-old man who presents with a history of ESRD on peritoneal dialysis acute onset of nausea vomiting and postprandial abdominal pain found to have acute pancreatitis likely 2/2 to etoh abuse, admits to drinking 2 shots and half a beer daily * Acute pancreatitis secondary to alcohol abuse * Pneumonia * End-stage renal disease on peritoneal dialysis * Constipation * Precipitatious of some drop in hemoglobin * Metabolic acidosis secondary to end-stage renal disease * Hypertension * Secondary hyperparathyroidism * Alcohol abuse and dependence Plan * Continue supportive care, antiemetics, analgesia. will try diet again today. If tolerating diet will anticipate Discharge in a.m. * CT abdomen negative for any cholelithiasis. * continue abx * Continue IV D5 NS * Continue peritoneal dialysis. * Monitor his electrolytes * Extensive counseling provided to the patient the need to quit alcohol patient verbalized understanding resources provided to the patient. * DVT/GI prophylaxis * Discussed in detail with patient. History Interval history: Patient seen and examined this morning in no acute distress, reports less pain today. Pain with clear liquids food last night. Denies any chest pain, nausea, vomiting, diarrhea No fever noted blood pressure controlled No adverse events reported to me by nursing staff Hospitalist Physical - Physical exam Narrative exam: VITAL SIGNS: Reviewed. GENERAL: The patient appeared well nourished and normally developed. Vital signs as documented. HEAD: No signs of head trauma. EYES: Pupils are equal. Extraocular motions intact. EARS: Hearing grossly intact. MOUTH: Oropharynx is normal. NECK: No adenopathy, no JVD. CHEST: Chest with clear breath sounds bilaterally. No wheezes, rales, or rhonchi. CARDIAC: Regular rate and rhythm. S1 and S2, without murmurs, gallops, or rubs. VASCULAR: No Edema. Peripheral pulses normal and equal in all extremities. ABDOMEN: Soft, tender. No sign of distention. No rebound or guarding, and no masses palpated. Bowel Sounds normal. MUSCULOSKELETAL: Good range of motion of all major joints. Extremities without clubbing, cyanosis or edema. NEUROLOGIC EXAM: Alert and oriented x 3. No focal sensory or strength deficits. Speech normal. Follows commands. PSYCHIATRIC: Mood normal. SKIN: No rash or lesions. - Constitutional Vitals: Temp Pulse Resp BP Pulse Ox 98.9 F 99 H 18 129/83 94 12/24/16 12:10 12/24/16 14:18 12/24/16 14:00 12/24/16 14:18 12/24/16 12:10 General appearance: Present: mild distress Results - Labs CBC & Chem 7: 12/24/16 05:32 12/24/16 05:32 Labs: Laboratory Last Values WBC 9.3 K/mm3 (4.5-11.0) 12/24/16 05:32 RBC 2.45 M/mm3 (3.65-5.03) L 12/24/16 05:32 Hgb 7.8 gm/dl (11.8-15.2) L 12/24/16 05:32 Hct 23.5 % (35.5-45.6) L 12/24/16 05:32 MCV 96 fl (84-94) H 12/24/16 05:32 MCH 32 pg (28-32) 12/24/16 05:32 MCHC 33 % (32-34) 12/24/16 05:32 RDW 18.4 % (13.2-15.2) H 12/24/16 05:32 Plt Count 217 K/mm3 (140-440) 12/24/16 05:32 Lymph % (Auto) 5.9 % (13.4-35.0) L 12/20/16 06:36 [place] % (Auto) 4.3 % (0.0-7.3) 12/20/16 06:36 Eos % (Auto) 0.0 % (0.0-4.3) 12/20/16 06:36 Baso % (Auto) 0.3 % (0.0-1.8) 12/20/16 06:36 Lymph # 0.6 K/mm3 (1.2-5.4) L 12/20/16 06:36 [place] # 0.4 K/mm3 (0.0-0.8) 12/20/16 06:36 Eos # 0.0 K/mm3 (0.0-0.4) 12/20/16 06:36 Baso # 0.0 K/mm3 (0.0-0.1) 12/20/16 06:36 Seg Neutrophils % 89.5 % (40.0-70.0) H 12/20/16 06:36 Seg Neutrophils # 8.6 K/mm3 (1.8-7.7) H 12/20/16 06:36 PT 13.2 Sec. (12.2-14.9) 12/20/16 06:36 INR 1.01 (0.87-1.13) 12/20/16 06:36 APTT 24.6 Sec. (24.2-36.6) 12/20/16 06:36 VBG pH 7.302 (7.320-7.420) L 12/20/16 07:45 Sodium 138 mmol/L (137-145) 12/24/16 05:32 Potassium 4.0 mmol/L (3.6-5.0) 12/24/16 05:32 Chloride 89.9 mmol/L (98-107) L 12/24/16 05:32 Carbon Dioxide 32 mmol/L (22-30) H 12/24/16 05:32 Anion Gap 20 mmol/L 12/24/16 05:32 BUN 78 mg/dL (9-20) H 12/24/16 05:32 Creatinine 19.5 mg/dL (0.8-1.5) H 12/24/16 05:32 Estimated GFR 3 ml/min 12/24/16 05:32 BUN/Creatinine Ratio 4.00 % 12/24/16 05:32 Glucose 98 mg/dL (75-100) 12/24/16 05:32 POC Glucose 99 (70-105) 12/23/16 21:04 Lactic Acid 0.9 mmol/L (0.7-2.0) 12/20/16 07:45 Calcium 8.1 mg/dL (8.4-10.2) L 12/24/16 05:32 Phosphorus 5.7 mg/dL (2.5-4.5) H 12/20/16 06:36 Magnesium 2.1 mg/dL (1.7-2.3) 12/20/16 06:36 Total Bilirubin 0.3 mg/dL (0.1-1.2) 12/24/16 05:32 Direct Bilirubin < 0.2 mg/dL (0-0.2) 12/20/16 06:36 AST 24 units/L (5-40) 12/24/16 05:32 ALT 21 units/L (7-56) 12/24/16 05:32 Alkaline Phosphatase 44 units/L (35-129) 12/24/16 05:32 Total Creatine Kinase 121 units/L (55-170) 12/20/16 06:36 CK-MB (CK-2) 1.2 ng/mL (0.0-4.0) 12/20/16 06:36 CK-MB (CK-2) Rel Index 0.9 (0-4) 12/20/16 06:36 Troponin T < 0.010 ng/mL (0.00-0.029) 12/20/16 06:36 NT-Pro-B Natriuret Pep 6862 pg/mL (0-450) H 12/20/16 06:36 Total Protein 5.5 g/dL (6.3-8.2) L 12/24/16 05:32 Albumin 2.2 g/dL (3.9-5) L 12/24/16 05:32 Albumin/Globulin Ratio 0.7 % 12/24/16 05:32 Triglycerides 49 mg/dL (2-149) 12/22/16 05:37 Cholesterol 87 mg/dL (50-199) 12/22/16 05:37 LDL Cholesterol Direct 40 mg/dL (50-130) L 12/22/16 05:37 HDL Cholesterol 38 mg/dL (40-59) L 12/22/16 05:37 Cholesterol/HDL Ratio 2.28 % 12/22/16 05:37 Lipase 950 units/L (13-60) H 12/21/16 07:20 Urine Color Yellow (Yellow) 12/20/16 08:00 Urine Turbidity Clear (Clear) 12/20/16 08:00 Urine pH 7.0 (5.0-7.0) 12/20/16 08:00 Ur Specific [place] 1.009 (1.003-1.030) 12/20/16 08:00 Urine Protein 100 mg/dl mg/dL (Negative) 12/20/16 08:00 Urine Glucose (UA) Neg mg/dL (Negative) 12/20/16 08:00 Urine Ketones Neg mg/dL (Negative) 12/20/16 08:00 Urine Blood Lg (Negative) 12/20/16 08:00 Urine Nitrite Neg (Negative) 12/20/16 08:00 Urine Bilirubin Neg (Negative) 12/20/16 08:00 Urine Urobilinogen < 2.0 mg/dL (<2.0) 12/20/16 08:00 Ur Leukocyte Esterase Sm (Negative) 12/20/16 08:00 Urine WBC (Auto) 7.0 /HPF (0.0-6.0) H 12/20/16 08:00 Urine RBC (Auto) 8.0 /HPF (0.0-6.0) 12/20/16 08:00 U Epithel Cells (Auto) < 1.0 /HPF (0-13.0) 12/20/16 08:00 Urine Mucus Few /HPF 12/20/16 08:00 Urine Opiates Screen Presumptive negative 12/20/16 08:00 Urine Methadone Screen Presumptive negative 12/20/16 08:00 Ur Barbiturates Screen Presumptive negative 12/20/16 08:00 Ur Phencyclidine Scrn Presumptive negative 12/20/16 08:00 Ur Amphetamines Screen Presumptive negative 12/20/16 08:00 U Benzodiazepines Scrn Presumptive negative 12/20/16 08:00 Urine Cocaine Screen Presumptive negative 12/20/16 08:00 U Marijuana (THC) Screen Presumptive negative 12/20/16 08:00 Drugs of Abuse Note Disclamer 12/20/16 08:00
[2016-12-25] MEDS: DILAUDID IV PRN ×6 (02:09→23:06)
[2016-12-25] MEDS ORDERED: VASELINE LIP THERAPY TP PRN (02:11)
[2016-12-25] MEDS: DIANEAL LOW CALCIUM W/1.5% DEXTROSE IP SCH ×4 (06:06→23:38)
[2016-12-25] MEDS: DUONEB 0.5 MG-3 MG/3 ML SOLN IH SCH ×3 (07:57→19:31)
[2016-12-25] MEDS: RENVELA PO SCH ×3 (08:00→19:04)
[2016-12-25] MEDS: CATAPRES PO SCH ×3 (08:00→21:44)
[2016-12-25 08:10] LABS: Hematocrit 24.3 % (35.5-45.6); Hemoglobin 7.8 gm/dl (11.8-15.2); Mean Corpuscular HGB Conc 32 % (32-34); Mean Corpuscular Hemoglobin 31 pg (28-32); Mean Corpuscular Volume 96 fl (84-94); Platelet Count 250 K/mm3 (140-440); Red Blood Count 2.54 M/mm3 (3.65-5.03); Red Cell Distribution Width 18.6 % (13.2-15.2); White Blood Count 11.1 K/mm3 (4.5-11.0)
[2016-12-25 08:44] LABS: BUN/Creatinine Ratio 4.08; Calcium 8.4 mg/dL (8.4-10.2); Chloride 88.8 mmol/L (98-107); Potassium 3.8 mmol/L (3.6-5.0)
--- NOTE | 2016-12-25 09:22 | Progress Note ---
Assessment and Plan Assessment: 1. acute pancreatitis 2. ESRD on PD 3. Anemia of ESRD 4. Hypertension 5. metabolic acidosis 6. Secondary hyperparathyroidism 7. Constipation Plan/Recommendations: 1. advance diet as tolerated. 2. pt on clear liquid diet. 3. continue CAPD, continue 4 cycles w/ 1.5dineal solution, dwell volume 2L. improving azotemia noted. 4. continue sensipar/renvela for treatment of secondary hyperparathyrodism 5. lactulose prn for constipation stable for discharge from renal stand point if patient tolerates advanced diet. Subjective Date of service: 12/25/16 Principal diagnosis: acute pancreatitis Interval history: pt awake, alert, in NAD still with intermittent abdominal pain, on liquid diet. Objective - Vital Signs Vital signs: Vital Signs - 12hr 12/24/16 12/24/16 12/24/16 22:43 23:13 23:50 Temperature Pulse Rate 97 H Pulse Rate [ Anterior Bilateral Throughout] Pulse Rate [ Right Radial] Respiratory 20 20 Rate Respiratory Rate [Abdomen] Respiratory Rate [Anterior Bilateral Throughout] Blood Pressure 146/96 Blood Pressure [Right Arm] O2 Sat by Pulse Oximetry 12/24/16 12/25/16 12/25/16 23:52 00:00 00:05 Temperature 98.5 F Pulse Rate Pulse Rate [ Anterior Bilateral Throughout] Pulse Rate [ 92 H Right Radial] Respiratory 20 20 Rate Respiratory 20 Rate [Abdomen] Respiratory Rate [Anterior Bilateral Throughout] Blood Pressure Blood Pressure 134/88 [Right Arm] O2 Sat by Pulse 97 Oximetry 12/25/16 12/25/16 12/25/16 02:09 02:39 04:00 Temperature 98.0 F Pulse Rate Pulse Rate [ Anterior Bilateral Throughout] Pulse Rate [ 90 Right Radial] Respiratory 20 20 20 Rate Respiratory Rate [Abdomen] Respiratory Rate [Anterior Bilateral Throughout] Blood Pressure Blood Pressure 130/90 [Right Arm] O2 Sat by Pulse 96 Oximetry 12/25/16 12/25/16 12/25/16 06:12 07:48 07:57 Temperature 97.8 F Pulse Rate Pulse Rate [ 88 Anterior Bilateral Throughout] Pulse Rate [ 92 H Right Radial] Respiratory 20 16 Rate Respiratory Rate [Abdomen] Respiratory 18 Rate [Anterior Bilateral Throughout] Blood Pressure Blood Pressure 161/100 [Right Arm] O2 Sat by Pulse 93 Oximetry 12/25/16 12/25/16 08:05 09:03 Temperature Pulse Rate Pulse Rate [ 92 H Anterior Bilateral Throughout] Pulse Rate [ Right Radial] Respiratory Rate Respiratory Rate [Abdomen] Respiratory 18 Rate [Anterior Bilateral Throughout] Blood Pressure Blood Pressure [Right Arm] O2 Sat by Pulse 97 Oximetry - General Appearance General appearance: well-developed, well-nourished, appears stated age EENT: ATNC, PERRL, mucous membranes moist Neck: no JVD Respiratory: Present: Clear to Ascultation Cardiology: regular, S1S2 Gastrointestinal: normal, normoactive bowel sounds, tenderness Integumentary: no rash, other Neurologic: no focal deficit, alert and oriented x3, strength 5/5, CN 3-12 intact Psychiatric: mood/affect appropriate, cooperative - Lab 12/25/16 07:30 12/25/16 07:30 Most recent lab results Calcium 8.4 mg/dL (8.4-10.2) 12/25/16 07:30 Phosphorus 5.7 mg/dL (2.5-4.5) H 12/20/16 06:36 Magnesium 2.1 mg/dL (1.7-2.3) 12/20/16 06:36
[2016-12-25] MEDS: ROCALTROL PO SCH ×2 (10:00→21:43)
[2016-12-25] MEDS: ZITHROMAX PO SCH (10:00)
[2016-12-25] MEDS: ROCEPHIN/NS 1 GM/50 ML 1 GM/50 ML BAG IV SCH (10:00)
[2016-12-25] MEDS: LOVENOX SUB-Q SCH (10:32)
[2016-12-25] MEDS: PROCARDIA XL PO SCH (10:34)
--- NOTE | 2016-12-25 12:07 | XRay Report ---
Single view chest: Compared to 12/20/16. History: Hypoxia. Findings: Film in poor inspiration. Cardiomegaly. Trachea is midline. No consolidation, pneumothorax or pleural effusion. Impression: Low volume lungs. No acute lung changes.
--- NOTE | 2016-12-25 12:54 | Gastroenterology Progress Note ---
<KARYNA FERRER - Last Filed: 12/25/16 12:54> Assessment and Plan 1. acute pancreatitis - slow improvement in clinical course. Patient is taking in very little PO. This is Day #5 with clears/NPO. Need to consider alternative nutrition. May need to consider repeat CT scan to evaluate for necrosis or further changes. He reports his pain in the abdomen is improved, however he is having pain in his back. Follow up Lipase. 2. Constipation - likely from pain meds, start bowel regimen daily Subjective Date of service: 12/25/16 Principal diagnosis: acute pancreatitis Interval history: Patient reports he is not able to take in very much of the clear liquids without having N/V. Has pain in his back. Objective - Constitutional Vitals: Temp Pulse Resp BP Pulse Ox 97.8 F 92 H 18 161/100 97 12/25/16 07:48 12/25/16 08:05 12/25/16 08:05 12/25/16 07:48 12/25/16 09:03 General appearance: no acute distress - EENT ENT: hearing intact - Neck Neck: supple - Cardiovascular Rhythm: regular Heart Sounds: Present: S1 & S2 - Gastrointestinal General gastrointestinal: Present: soft, non-tender, normal bowel sounds - Integumentary Integumentary: Present: warm, dry - Neurologic Neurological: alert and oriented x3 - Labs CBC & Chem 7: 12/25/16 07:30 12/25/16 07:30 Labs: Laboratory Results - last 24 hr 12/25/16 12/25/16 07:30 07:30 WBC 11.1 H RBC 2.54 L Hgb 7.8 L Hct 24.3 L MCV 96 H MCH 31 MCHC 32 RDW 18.6 H Plt Count 250 Sodium 137 Potassium 3.8 Chloride 88.8 L Carbon Dioxide 31 H Anion Gap 21 BUN 74 H Creatinine 18.1 H Estimated GFR 3 BUN/Creatinine Ratio 4.08 Glucose 122 H Calcium 8.4 <MONA PIKE - Last Filed: 12/25/16 14:38> Assessment and Plan - Patient Problems (1) Acute pancreatitis Current Visit: Yes Status: Acute Qualifiers: Pancreatitis type: unspecified pancreatitis type Acute pancreatitis complication: unspecified Qualified Code(s): K85.90 - Acute pancreatitis without necrosis or infection, unspecified Plan to address problem: Fairly severe pancreatitis. Symptoms not improving so far. Hypoxia is worrisome and may reflect leaky capillaries in this setting. He has tubular BS on exam and may have atelectasis component. Would update CT at this point WITH contrast, if not allergic to assess for necrosis. If hypoxia should worsen, would move patient to ICU or step down unit for closer observation. (2) End stage renal disease on dialysis Current Visit: Yes Status: Acute (3) Metabolic acidosis Current Visit: Yes Status: Acute (4) ESRD on peritoneal dialysis Current Visit: No Status: Acute Objective - Constitutional Vitals: Temp Pulse Resp BP Pulse Ox 97.8 F 94 H 18 160/90 97 12/25/16 07:48 12/25/16 14:09 12/25/16 14:09 12/25/16 13:09 12/25/16 09:03 - Labs CBC & Chem 7: 12/25/16 07:30 12/25/16 07:30 Labs: Laboratory Results - last 24 hr 12/25/16 12/25/16 07:30 07:30 WBC 11.1 H RBC 2.54 L Hgb 7.8 L Hct 24.3 L MCV 96 H MCH 31 MCHC 32 RDW 18.6 H Plt Count 250 Sodium 137 Potassium 3.8 Chloride 88.8 L Carbon Dioxide 31 H Anion Gap 21 BUN 74 H Creatinine 18.1 H Estimated GFR 3 BUN/Creatinine Ratio 4.08 Glucose 122 H Calcium 8.4
[2016-12-25] MEDS ORDERED: D5NS 1,000 ML IV SCH (14:00)
[2016-12-25] MEDS ORDERED: D5/0.45NS 1,000 ML IV SCH (14:00)
[2016-12-25] MEDS: REGLAN IV PRN ×2 (14:02→23:14)
[2016-12-25] MEDS: D5/0.45NS 1,000 ML IV SCH (14:30)
[2016-12-25 15:10] LABS: ISTAT Base Excess 12; ISTAT DEVICE 0; ISTAT HCO3 34.1; ISTAT PO2 34 (80-105); ISTAT SO2 75; ISTAT TCO2 35
--- NOTE | 2016-12-25 16:26 | Progress Note ---
Assessment and Plan Assessment and plan: This is a 46-year-old man who presents with a history of ESRD on peritoneal dialysis acute onset of nausea vomiting and postprandial abdominal pain found to have acute pancreatitis likely 2/2 to etoh abuse, admits to drinking 2 shots and half a beer daily * Acute pancreatitis secondary to alcohol abuse * Hypoxic Respiratory failure * Pneumonia-Resolved * Gastroenteritis- with persistent nausea and vomiting * End-stage renal disease on peritoneal dialysis * Constipation * Precipitatious drop in hemoglobin * Metabolic acidosis secondary to end-stage renal disease * Hypertension * Secondary hyperparathyroidism * Alcohol abuse and dependence Plan * Continue supportive care, antiemetics, analgesia. will try diet again today. If tolerating diet will anticipate Discharge in a.m. * Lactulose for constipation. * CT abdomen negative for any cholelithiasis. * Continue oxygen 2 L NC * Did review the chest x-ray does not show any further infiltrate. We'll obtain a nuclear scan if hypoxia still persist. * We'll add incentive spirometer * zofran and reglan PRN * continue abx * Continue IV D5 1/2NS * Continue peritoneal dialysis. * Monitor his electrolytes * Extensive counseling provided to the patient the need to quit alcohol patient verbalized understanding resources provided to the patient. * DVT/GI prophylaxis * Discussed in detail with patient. History Interval history: Patient seen and examined this morning in no acute distress, reports less pain today. Pain with clear liquids food last night. Denies any chest pain, nausea, vomiting, diarrhea No fever noted blood pressure controlled No adverse events reported to me by nursing staff Hospitalist Physical - Constitutional Vitals: Temp Pulse Resp BP Pulse Ox 98.3 F 94 H 18 141/94 93 12/25/16 15:20 12/25/16 14:09 12/25/16 15:20 12/25/16 15:20 12/25/16 15:20 General appearance: Present: mild distress Results - Labs CBC & Chem 7: 12/25/16 07:30 12/25/16 07:30 Labs: Laboratory Last Values WBC 11.1 K/mm3 (4.5-11.0) H 12/25/16 07:30 RBC 2.54 M/mm3 (3.65-5.03) L 12/25/16 07:30 Hgb 7.8 gm/dl (11.8-15.2) L 12/25/16 07:30 Hct 24.3 % (35.5-45.6) L 12/25/16 07:30 MCV 96 fl (84-94) H 12/25/16 07:30 MCH 31 pg (28-32) 12/25/16 07:30 MCHC 32 % (32-34) 12/25/16 07:30 RDW 18.6 % (13.2-15.2) H 12/25/16 07:30 Plt Count 250 K/mm3 (140-440) 12/25/16 07:30 Lymph % (Auto) 5.9 % (13.4-35.0) L 12/20/16 06:36 [place] % (Auto) 4.3 % (0.0-7.3) 12/20/16 06:36 Eos % (Auto) 0.0 % (0.0-4.3) 12/20/16 06:36 Baso % (Auto) 0.3 % (0.0-1.8) 12/20/16 06:36 Lymph # 0.6 K/mm3 (1.2-5.4) L 12/20/16 06:36 [place] # 0.4 K/mm3 (0.0-0.8) 12/20/16 06:36 Eos # 0.0 K/mm3 (0.0-0.4) 12/20/16 06:36 Baso # 0.0 K/mm3 (0.0-0.1) 12/20/16 06:36 Seg Neutrophils % 89.5 % (40.0-70.0) H 12/20/16 06:36 Seg Neutrophils # 8.6 K/mm3 (1.8-7.7) H 12/20/16 06:36 PT 13.2 Sec. (12.2-14.9) 12/20/16 06:36 INR 1.01 (0.87-1.13) 12/20/16 06:36 APTT 24.6 Sec. (24.2-36.6) 12/20/16 06:36 POC ABG pH 7.560 (7.35-7.45) H 12/25/16 14:14 POC ABG pCO2 38.0 (35-45) 12/25/16 14:14 POC ABG pO2 34 (80-105) L 12/25/16 14:14 POC ABG HCO3 34.1 12/25/16 14:14 POC ABG Total CO2 35 12/25/16 14:14 POC ABG O2 Sat 75 12/25/16 14:14 POC ABG Base Excess 12 12/25/16 14:14 VBG pH 7.302 (7.320-7.420) L 12/20/16 07:45 Sodium 137 mmol/L (137-145) 12/25/16 07:30 Potassium 3.8 mmol/L (3.6-5.0) 12/25/16 07:30 Chloride 88.8 mmol/L (98-107) L 12/25/16 07:30 Carbon Dioxide 31 mmol/L (22-30) H 12/25/16 07:30 Anion Gap 21 mmol/L 12/25/16 07:30 BUN 74 mg/dL (9-20) H 12/25/16 07:30 Creatinine 18.1 mg/dL (0.8-1.5) H 12/25/16 07:30 Estimated GFR 3 ml/min 12/25/16 07:30 BUN/Creatinine Ratio 4.08 % 12/25/16 07:30 Glucose 122 mg/dL (75-100) H 12/25/16 07:30 POC Glucose 99 (70-105) 12/23/16 21:04 Lactic Acid 0.9 mmol/L (0.7-2.0) 12/20/16 07:45 Calcium 8.4 mg/dL (8.4-10.2) 12/25/16 07:30 Phosphorus 5.7 mg/dL (2.5-4.5) H 12/20/16 06:36 Magnesium 2.1 mg/dL (1.7-2.3) 12/20/16 06:36 Total Bilirubin 0.3 mg/dL (0.1-1.2) 12/24/16 05:32 Direct Bilirubin < 0.2 mg/dL (0-0.2) 12/20/16 06:36 AST 24 units/L (5-40) 12/24/16 05:32 ALT 21 units/L (7-56) 12/24/16 05:32 Alkaline Phosphatase 44 units/L (35-129) 12/24/16 05:32 Total Creatine Kinase 121 units/L (55-170) 12/20/16 06:36 CK-MB (CK-2) 1.2 ng/mL (0.0-4.0) 12/20/16 06:36 CK-MB (CK-2) Rel Index 0.9 (0-4) 12/20/16 06:36 Troponin T < 0.010 ng/mL (0.00-0.029) 12/20/16 06:36 NT-Pro-B Natriuret Pep 6862 pg/mL (0-450) H 12/20/16 06:36 Total Protein 5.5 g/dL (6.3-8.2) L 12/24/16 05:32 Albumin 2.2 g/dL (3.9-5) L 12/24/16 05:32 Albumin/Globulin Ratio 0.7 % 12/24/16 05:32 Triglycerides 49 mg/dL (2-149) 12/22/16 05:37 Cholesterol 87 mg/dL (50-199) 12/22/16 05:37 LDL Cholesterol Direct 40 mg/dL (50-130) L 12/22/16 05:37 HDL Cholesterol 38 mg/dL (40-59) L 12/22/16 05:37 Cholesterol/HDL Ratio 2.28 % 12/22/16 05:37 Lipase 81 units/L (13-60) H 12/25/16 07:30 Urine Color Yellow (Yellow) 12/20/16 08:00 Urine Turbidity Clear (Clear) 12/20/16 08:00 Urine pH 7.0 (5.0-7.0) 12/20/16 08:00 Ur Specific [place] 1.009 (1.003-1.030) 12/20/16 08:00 Urine Protein 100 mg/dl mg/dL (Negative) 12/20/16 08:00 Urine Glucose (UA) Neg mg/dL (Negative) 12/20/16 08:00 Urine Ketones Neg mg/dL (Negative) 12/20/16 08:00 Urine Blood Lg (Negative) 12/20/16 08:00 Urine Nitrite Neg (Negative) 12/20/16 08:00 Urine Bilirubin Neg (Negative) 12/20/16 08:00 Urine Urobilinogen < 2.0 mg/dL (<2.0) 12/20/16 08:00 Ur Leukocyte Esterase Sm (Negative) 12/20/16 08:00 Urine WBC (Auto) 7.0 /HPF (0.0-6.0) H 12/20/16 08:00 Urine RBC (Auto) 8.0 /HPF (0.0-6.0) 12/20/16 08:00 U Epithel Cells (Auto) < 1.0 /HPF (0-13.0) 12/20/16 08:00 Urine Mucus Few /HPF 12/20/16 08:00 Urine Opiates Screen Presumptive negative 12/20/16 08:00 Urine Methadone Screen Presumptive negative 12/20/16 08:00 Ur Barbiturates Screen Presumptive negative 12/20/16 08:00 Ur Phencyclidine Scrn Presumptive negative 12/20/16 08:00 Ur Amphetamines Screen Presumptive negative 12/20/16 08:00 U Benzodiazepines Scrn Presumptive negative 12/20/16 08:00 Urine Cocaine Screen Presumptive negative 12/20/16 08:00 U Marijuana (THC) Screen Presumptive negative 12/20/16 08:00 Drugs of Abuse Note Disclamer 12/20/16 08:00
[2016-12-25] MEDS: CEPHULAC PO SCH ×2 (19:04→23:06)
[2016-12-26] MEDS: DILAUDID IV PRN ×4 (05:39→23:45)
[2016-12-26] MEDS: CEPHULAC PO SCH (05:39)
[2016-12-26] MEDS: ZOFRAN IV PRN (05:40)
[2016-12-26] MEDS: DIANEAL LOW CALCIUM W/1.5% DEXTROSE IP SCH ×4 (05:44→22:00)
[2016-12-26] MEDS: PROCARDIA XL PO SCH (09:20)
[2016-12-26] MEDS: LOVENOX SUB-Q SCH (09:20)
[2016-12-26] MEDS: ROCEPHIN/NS 1 GM/50 ML 1 GM/50 ML BAG IV SCH (09:20)
[2016-12-26] MEDS: RENVELA PO SCH ×3 (09:21→18:28)
[2016-12-26] MEDS: CATAPRES PO SCH ×3 (09:21→21:26)
[2016-12-26] MEDS: ZITHROMAX PO SCH (09:21)
[2016-12-26] MEDS: ROCALTROL PO SCH ×2 (09:28→21:27)
[2016-12-26] MEDS: DUONEB 0.5 MG-3 MG/3 ML SOLN IH SCH ×4 (09:34→19:45)
[2016-12-26] MEDS: D5/0.45NS 1,000 ML IV SCH (09:35)
--- NOTE | 2016-12-26 10:17 | Cat Scan Report ---
CT ABDOMEN AND PELVIS WITHOUT CONTRAST: 12/26/16 CLINICAL:Followup pancreatitis. TECHNIQUE: Volumetric acquisition and 1.25 millimeter scan reconstructions from the lung bases through the iliac crest. The study was performed without oral contrast. FINDINGS: Abdomen:Small bilateral pleural effusions and bibasal atelectasis, left worse than right has developed since the prior exam. Small pericardial effusion is stable. Numerous hepatic cysts. The gallbladder and bile duct are normal. The distal esophagus, stomach and duodenum are normal. The spleen is normal. Significant increased ascites and increased peripancreatic and mesenteric edema. No evidence of pancreatic hemorrhage. No pseudocyst. Stable kidneys with autosomal dominant polycystic kidney disease and too numerous to count cysts. Many of the cysts are hyperdense. The renal collecting systems and ureters are nondilated. The adrenal glands are normal. The small bowel is normal. Mild diverticulosis of the entire colon but no signs of diverticulitis. An appendix is not identified. Intact ventral abdominal mesh graft. Pelvis: The urinary bladder is normal except for moderate diffuse wall thickening. The prostate and seminal vesicles are normal. Large volume of pelvic ascites and a peritoneal dialysis catheter in the upper pelvis. IMPRESSION: 1. Increased peripancreatic and mesenteric edema since the prior exam is consistent with worsened acute pancreatitis. However, no evidence of pancreatic hemorrhage or pseudocyst. 2. Increased ascites with a peritoneal dialysis catheter in place. 3. Autosomal dominant polycystic kidney disease with extensive renal cysts and numerous hepatic cysts.
--- NOTE | 2016-12-26 10:21 | Cat Scan Report ---
CT THORACIC SPINE WITHOUT CONTRAST: 12/26/16 09:06:00 CLINICAL: Back pain. TECHNIQUE: Volumetric acquisition and 1.25-mm and 2.5 mm axial scan reconstructions of the thoracic spine without contrast. Sagittal and coronal reformats were performed. COMPARISON: None. FINDINGS: Normal vertebral body height, alignment and disk spaces. Mild degenerative changes with small osteophytes at T8-9. No fracture.No bone lesions. The soft tissues are normal. IMPRESSION: Mild degenerative change at T8-9 and otherwise normal.
--- NOTE | 2016-12-26 10:30 | Cat Scan Report ---
CT LUMBAR SPINE WITHOUT CONTRAST: 12/26/16 CLINICAL: Back pain. TECHNIQUE: Volumetric acquisition and 1.25-mm scan reconstructions without contrast. Sagittal and coronal reformats were performed. FINDINGS: Normal vertebral body height, alignment and disk spaces. No fracture or subluxation.The discs are intact at all levels. The soft tissues are normal except for subcutaneous soft tissue edema in the posterior dependent soft tissues. IMPRESSION: Normal lumbar spine.
--- NOTE | 2016-12-26 11:42 | Progress Note ---
Assessment and Plan Assessment and plan: This is a 46-year-old man who presents with a history of ESRD on peritoneal dialysis acute onset of nausea vomiting and postprandial abdominal pain found to have acute pancreatitis likely 2/2 to etoh abuse, admits to drinking 2 shots and half a beer daily * Acute pancreatitis secondary to alcohol abuse * Hypoxic Respiratory failure * Pneumonia-Resolved * Gastroenteritis- with persistent nausea and vomiting * End-stage renal disease on peritoneal dialysis * Constipation * Precipitatious drop in hemoglobin * Metabolic acidosis secondary to end-stage renal disease * Hypertension * Secondary hyperparathyroidism * Alcohol abuse and dependence Plan * Continue supportive care, still taking very little by mouth. Will obtain CT abdomen and also thoracic lumbar spine. To rule out any other pathology. Lipase continues to improve. * Continue Antiemetics, analgesia. will try diet again today. If tolerating diet will anticipate Discharge in a.m. * Lactulose for constipation. * Continue oxygen 2 L NC * Did review the chest x-ray does not show any further infiltrate. We'll obtain a nuclear scan if hypoxia still persist. * Continue incentive spirometer * zofran and reglan PRN * continue abx * Continue IV D5 1/2NS * Continue peritoneal dialysis. * Monitor his electrolytes * Extensive counseling provided to the patient the need to quit alcohol patient verbalized understanding resources provided to the patient. * DVT/GI prophylaxis * Discussed in detail with patient. * If continues to tolerate diet will anticipate discharge in a.m. if no other pathology on imaging study. . History Interval history: Patient seen and examined this morning in had some broth last night, reports improvement in pain this am, Denies any chest pain, diarrhea No fever noted blood pressure controlled No adverse events reported to me by nursing staff Hospitalist Physical - Physical exam Narrative exam: VITAL SIGNS: Reviewed. GENERAL: The patient appeared well nourished and normally developed. Vital signs as documented. HEAD: No signs of head trauma. EYES: Pupils are equal. Extraocular motions intact. EARS: Hearing grossly intact. MOUTH: Oropharynx is normal. NECK: No adenopathy, no JVD. CHEST: Chest with clear breath sounds bilaterally. No wheezes, rales, or rhonchi. CARDIAC: Regular rate and rhythm. S1 and S2, without murmurs, gallops, or rubs. VASCULAR: No Edema. Peripheral pulses normal and equal in all extremities. ABDOMEN: Soft, Tender in the abdomen no rebound or distention noted. Bowel Sounds normal. MUSCULOSKELETAL: Good range of motion of all major joints. Extremities without clubbing, cyanosis or edema. NEUROLOGIC EXAM: Alert and oriented x 3. No focal sensory or strength deficits. Speech normal. Follows commands. PSYCHIATRIC: Mood normal. SKIN: No rash or lesions. - Constitutional Vitals: Temp Pulse Resp BP Pulse Ox 98.4 F 105 H 19 139/93 93 12/26/16 08:05 12/26/16 10:01 12/26/16 10:01 12/26/16 08:05 12/26/16 09:55 General appearance: Present: mild distress Results - Labs CBC & Chem 7: 12/25/16 07:30 12/25/16 07:30 Labs: Laboratory Last Values WBC 11.1 K/mm3 (4.5-11.0) H 12/25/16 07:30 RBC 2.54 M/mm3 (3.65-5.03) L 12/25/16 07:30 Hgb 7.8 gm/dl (11.8-15.2) L 12/25/16 07:30 Hct 24.3 % (35.5-45.6) L 12/25/16 07:30 MCV 96 fl (84-94) H 12/25/16 07:30 MCH 31 pg (28-32) 12/25/16 07:30 MCHC 32 % (32-34) 12/25/16 07:30 RDW 18.6 % (13.2-15.2) H 12/25/16 07:30 Plt Count 250 K/mm3 (140-440) 12/25/16 07:30 Lymph % (Auto) 5.9 % (13.4-35.0) L 12/20/16 06:36 [place] % (Auto) 4.3 % (0.0-7.3) 12/20/16 06:36 Eos % (Auto) 0.0 % (0.0-4.3) 12/20/16 06:36 Baso % (Auto) 0.3 % (0.0-1.8) 12/20/16 06:36 Lymph # 0.6 K/mm3 (1.2-5.4) L 12/20/16 06:36 [place] # 0.4 K/mm3 (0.0-0.8) 12/20/16 06:36 Eos # 0.0 K/mm3 (0.0-0.4) 12/20/16 06:36 Baso # 0.0 K/mm3 (0.0-0.1) 12/20/16 06:36 Seg Neutrophils % 89.5 % (40.0-70.0) H 12/20/16 06:36 Seg Neutrophils # 8.6 K/mm3 (1.8-7.7) H 12/20/16 06:36 PT 13.2 Sec. (12.2-14.9) 12/20/16 06:36 INR 1.01 (0.87-1.13) 12/20/16 06:36 APTT 24.6 Sec. (24.2-36.6) 12/20/16 06:36 POC ABG pH 7.560 (7.35-7.45) H 12/25/16 14:14 POC ABG pCO2 38.0 (35-45) 12/25/16 14:14 POC ABG pO2 34 (80-105) L 12/25/16 14:14 POC ABG HCO3 34.1 12/25/16 14:14 POC ABG Total CO2 35 12/25/16 14:14 POC ABG O2 Sat 75 12/25/16 14:14 POC ABG Base Excess 12 12/25/16 14:14 VBG pH 7.302 (7.320-7.420) L 12/20/16 07:45 Sodium 137 mmol/L (137-145) 12/25/16 07:30 Potassium 3.8 mmol/L (3.6-5.0) 12/25/16 07:30 Chloride 88.8 mmol/L (98-107) L 12/25/16 07:30 Carbon Dioxide 31 mmol/L (22-30) H 12/25/16 07:30 Anion Gap 21 mmol/L 12/25/16 07:30 BUN 74 mg/dL (9-20) H 12/25/16 07:30 Creatinine 18.1 mg/dL (0.8-1.5) H 12/25/16 07:30 Estimated GFR 3 ml/min 12/25/16 07:30 BUN/Creatinine Ratio 4.08 % 12/25/16 07:30 Glucose 122 mg/dL (75-100) H 12/25/16 07:30 POC Glucose 99 (70-105) 12/23/16 21:04 Lactic Acid 0.9 mmol/L (0.7-2.0) 12/20/16 07:45 Calcium 8.4 mg/dL (8.4-10.2) 12/25/16 07:30 Phosphorus 5.7 mg/dL (2.5-4.5) H 12/20/16 06:36 Magnesium 2.1 mg/dL (1.7-2.3) 12/20/16 06:36 Total Bilirubin 0.3 mg/dL (0.1-1.2) 12/24/16 05:32 Direct Bilirubin < 0.2 mg/dL (0-0.2) 12/20/16 06:36 AST 24 units/L (5-40) 12/24/16 05:32 ALT 21 units/L (7-56) 12/24/16 05:32 Alkaline Phosphatase 44 units/L (35-129) 12/24/16 05:32 Total Creatine Kinase 121 units/L (55-170) 12/20/16 06:36 CK-MB (CK-2) 1.2 ng/mL (0.0-4.0) 12/20/16 06:36 CK-MB (CK-2) Rel Index 0.9 (0-4) 12/20/16 06:36 Troponin T < 0.010 ng/mL (0.00-0.029) 12/20/16 06:36 NT-Pro-B Natriuret Pep 6862 pg/mL (0-450) H 12/20/16 06:36 Total Protein 5.5 g/dL (6.3-8.2) L 12/24/16 05:32 Albumin 2.2 g/dL (3.9-5) L 12/24/16 05:32 Albumin/Globulin Ratio 0.7 % 12/24/16 05:32 Triglycerides 49 mg/dL (2-149) 12/22/16 05:37 Cholesterol 87 mg/dL (50-199) 12/22/16 05:37 LDL Cholesterol Direct 40 mg/dL (50-130) L 12/22/16 05:37 HDL Cholesterol 38 mg/dL (40-59) L 12/22/16 05:37 Cholesterol/HDL Ratio 2.28 % 12/22/16 05:37 Lipase 81 units/L (13-60) H 12/25/16 07:30 Urine Color Yellow (Yellow) 12/20/16 08:00 Urine Turbidity Clear (Clear) 12/20/16 08:00 Urine pH 7.0 (5.0-7.0) 12/20/16 08:00 Ur Specific [place] 1.009 (1.003-1.030) 12/20/16 08:00 Urine Protein 100 mg/dl mg/dL (Negative) 12/20/16 08:00 Urine Glucose (UA) Neg mg/dL (Negative) 12/20/16 08:00 Urine Ketones Neg mg/dL (Negative) 12/20/16 08:00 Urine Blood Lg (Negative) 12/20/16 08:00 Urine Nitrite Neg (Negative) 12/20/16 08:00 Urine Bilirubin Neg (Negative) 12/20/16 08:00 Urine Urobilinogen < 2.0 mg/dL (<2.0) 12/20/16 08:00 Ur Leukocyte Esterase Sm (Negative) 12/20/16 08:00 Urine WBC (Auto) 7.0 /HPF (0.0-6.0) H 12/20/16 08:00 Urine RBC (Auto) 8.0 /HPF (0.0-6.0) 12/20/16 08:00 U Epithel Cells (Auto) < 1.0 /HPF (0-13.0) 12/20/16 08:00 Urine Mucus Few /HPF 12/20/16 08:00 Urine Opiates Screen Presumptive negative 12/20/16 08:00 Urine Methadone Screen Presumptive negative 12/20/16 08:00 Ur Barbiturates Screen Presumptive negative 12/20/16 08:00 Ur Phencyclidine Scrn Presumptive negative 12/20/16 08:00 Ur Amphetamines Screen Presumptive negative 12/20/16 08:00 U Benzodiazepines Scrn Presumptive negative 12/20/16 08:00 Urine Cocaine Screen Presumptive negative 12/20/16 08:00 U Marijuana (THC) Screen Presumptive negative 12/20/16 08:00 Drugs of Abuse Note Disclamer 12/20/16 08:00
--- NOTE | 2016-12-26 14:25 | Progress Note ---
Assessment and Plan - Patient Problems (1) Acute pancreatitis Current Visit: Yes Status: Acute Qualifiers: Pancreatitis type: unspecified pancreatitis type Acute pancreatitis complication: unspecified Qualified Code(s): K85.90 - Acute pancreatitis without necrosis or infection, unspecified Plan to address problem: Continue medical management. Advance diet as tolerated. Continue pain control (2) Anemia, chronic renal failure Current Visit: No Status: Acute Qualifiers: Chronic kidney disease stage: stage 5 Qualified Code(s): N18.5 - Chronic kidney disease, stage 5; D63.1 - Anemia in chronic kidney disease Plan to address problem: Give erythropoietin and follow-up hemoglobin (3) ESRD on peritoneal dialysis Current Visit: No Status: Acute Plan to address problem: With change peritoneal dialysis exchanges to every 4 hours but still with 1.5% dianeal. (4) Hypertension Current Visit: No Status: Acute Qualifiers: Hypertension type: essential hypertension Qualified Code(s): I10 - Essential (primary) hypertension Plan to address problem: Follow-up blood pressure on current medications Subjective Date of service: 12/26/16 Principal diagnosis: acute pancreatitis Interval history: Patient seen lying in bed. Still complaining of abdominal pain but much better. No nausea or vomiting. Objective - Exam Narrative Exam: Middle-aged -[place] male lying in bed in no acute distress HEENT normocephalic atraumatic, pupils equal reactive to light, pink, clear oropharynx Neck supple, no thyromegaly no jugular venous distention CVS S1-S2 regular rate rhythm without murmur, rub or gallop Chest clear to auscultation Abdomen soft nondistended mild tenderness, PD catheter intact with no erythema or drainage from the exit site, no organomegaly no bruit bowel sounds present Extremities no edema, left upper extremity AV fistula no cyanosis or clubbing Genitourinary deferred Neuro awake, alert oriented x3 no gross deficit - Vital Signs Vital signs: Vital Signs - 12hr 12/26/16 12/26/16 12/26/16 03:54 05:39 08:00 Temperature 98.1 F Pulse Rate [ Anterior Bilateral Throughout] Pulse Rate [ 104 H 96 H Right Radial] Respiratory 18 20 18 Rate Respiratory Rate [Anterior Bilateral Throughout] Blood Pressure 138/94 [Right Arm] O2 Sat by Pulse 92 99 Oximetry 12/26/16 12/26/16 12/26/16 08:05 09:55 10:01 Temperature 98.4 F Pulse Rate [ 105 H Anterior Bilateral Throughout] Pulse Rate [ 102 H Right Radial] Respiratory 20 Rate Respiratory 19 Rate [Anterior Bilateral Throughout] Blood Pressure 139/93 [Right Arm] O2 Sat by Pulse 95 93 Oximetry 12/26/16 12/26/16 12:16 13:54 Temperature 98.3 F Pulse Rate [ Anterior Bilateral Throughout] Pulse Rate [ 97 H 95 H Right Radial] Respiratory 18 Rate Respiratory Rate [Anterior Bilateral Throughout] Blood Pressure 141/91 152/96 [Right Arm] O2 Sat by Pulse 95 Oximetry - Lab 12/25/16 07:30 12/25/16 07:30 Most recent lab results Calcium 8.4 mg/dL (8.4-10.2) 12/25/16 07:30 Phosphorus 5.7 mg/dL (2.5-4.5) H 12/20/16 06:36 Magnesium 2.1 mg/dL (1.7-2.3) 12/20/16 06:36
--- NOTE | 2016-12-26 17:21 | Gastroenterology Progress Note ---
Assessment and Plan severe acute pancreatitis - repeat CT findings reviewed. worsening inflammation however no mention of necrosis. Patient ideally needs more aggressive IVF's, but this is difficult given ESRD and respiratory status. Low threshold for transferring to higher level of care. If not tolerating po, may need dobhoff to initiate tube feeds. Subjective Date of service: 12/26/16 Principal diagnosis: acute pancreatitis Interval history: mild improvement in abd pain. still with limited oral intake due to symptoms. sob has improved. Objective - Constitutional Vitals: Temp Pulse Resp BP Pulse Ox 99.1 F 104 H 22 154/95 95 12/26/16 15:55 12/26/16 15:55 12/26/16 15:55 12/26/16 15:55 12/26/16 15:55 General appearance: no acute distress - Respiratory Respiratory effort: normal Respiratory: bilateral: CTA - Cardiovascular Rhythm: other (tachyccardic) Heart Sounds: Present: S1 & S2 - Extremities Extremities: No edema - Gastrointestinal General gastrointestinal: Present: soft (+ epigastric ttp, no rebound/guarding, nd) - Psychiatric Psychiatric: appropriate mood/affect - Labs CBC & Chem 7: 12/25/16 07:30 12/25/16 07:30 - Imaging CT scan: report reviewed
[2016-12-27] MEDS: DIANEAL LOW CALCIUM W/1.5% DEXTROSE IP SCH ×7 (03:48→22:52)
[2016-12-27] MEDS: DILAUDID IV PRN ×3 (06:30→15:13)
[2016-12-27 07:01] LABS: Hematocrit 22.6 % (35.5-45.6); Hemoglobin 7.3 gm/dl (11.8-15.2); Mean Corpuscular HGB Conc 33 % (32-34); Mean Corpuscular Hemoglobin 31 pg (28-32); Mean Corpuscular Volume 95 fl (84-94); Platelet Count 326 K/mm3 (140-440); Red Blood Count 2.36 M/mm3 (3.65-5.03); Red Cell Distribution Width 18.5 % (13.2-15.2); White Blood Count 12.6 K/mm3 (4.5-11.0)
[2016-12-27 07:26] LABS: Albumin 2.2 g/dL (3.9-5); Albumin/Globulin Ratio 0.6 %; BUN/Creatinine Ratio 4.14; Bilirubin,Total 0.4 mg/dL (0.1-1.2); Calcium 8.6 mg/dL (8.4-10.2); Chloride 91.3 mmol/L (98-107); Potassium 3.9 mmol/L (3.6-5.0); Total Protein 5.6 g/dL (6.3-8.2)
[2016-12-27] MEDS: DUONEB 0.5 MG-3 MG/3 ML SOLN IH SCH ×3 (08:10→19:36)
[2016-12-27] MEDS: CATAPRES PO SCH ×3 (08:46→22:31)
[2016-12-27] MEDS: RENVELA PO SCH ×3 (08:48→18:00)
[2016-12-27] MEDS: PROCARDIA XL PO SCH (09:51)
[2016-12-27] MEDS: LOVENOX SUB-Q SCH (09:51)
[2016-12-27] MEDS: ROCEPHIN/NS 1 GM/50 ML 1 GM/50 ML BAG IV SCH (09:52)
[2016-12-27] MEDS: D5/0.45NS 1,000 ML IV SCH (10:43)
--- NOTE | 2016-12-27 11:12 | Progress Note ---
Assessment and Plan Assessment and plan: This is a 46-year-old man who presents with a history of ESRD on peritoneal dialysis acute onset of nausea vomiting and postprandial abdominal pain found to have acute pancreatitis likely 2/2 to etoh abuse, admits to drinking 2 shots and half a beer daily * Acute pancreatitis secondary to alcohol abuse * SIRS secondary to pancreatitis * Hypoxic Respiratory failure * Pneumonia-Resolved * Gastroenteritis- with persistent nausea and vomiting * End-stage renal disease on peritoneal dialysis * Constipation-moved ball yesterday * Precipitatious drop in hemoglobin * Metabolic acidosis secondary to end-stage renal disease * Hypertension * Leukocytosis-persist but no fever * Poor PO intake * Moderate protein calorie malnutrition * Secondary hyperparathyroidism * Alcohol abuse and dependence Plan * Continue supportive care, still unable to take nothing by mouth. We'll insert a Dobbhoff for enteral nutrition. * CT abdomen shows worsening pancreatitis but no necrosis. * Unfortunately cannot give much fluids due to ESRD patient is on PD and does have appendicitis. * Continue Antiemetics, analgesia. will try diet again today. * Taper pain medication * Lactulose for constipation. * Continue oxygen 2 L NC * Did review the chest x-ray does not show any further infiltrate. We'll obtain a nuclear scan if hypoxia still persist. * Continue incentive spirometer * zofran and reglan PRN * continue abx * Continue IV D5 1/2NS * Continue peritoneal dialysis. * Monitor his electrolytes * Extensive counseling provided to the patient the need to quit alcohol patient verbalized understanding resources provided to the patient. * DVT/GI prophylaxis * Discussed in detail with patient. * Plan on discharge once patient tolerated by mouth . History Interval history: Patient seen and examined this morning attempted to eat but this was unsuccessful. Otherwise did have bowel movements continues to complain of intermittent abdominal pain. Rates it a 5/10 Intensity some improvement noted. Denies any chest pain, diarrhea No fever noted blood pressure controlled No adverse events reported to me by nursing staff Hospitalist Physical - Physical exam Narrative exam: VITAL SIGNS: Reviewed. GENERAL: The patient appeared well nourished and normally developed. Vital signs as documented. HEAD: No signs of head trauma. EYES: Pupils are equal. Extraocular motions intact. EARS: Hearing grossly intact. MOUTH: Oropharynx is normal. NECK: No adenopathy, no JVD. CHEST: Chest with clear breath sounds bilaterally. No wheezes, rales, or rhonchi. CARDIAC: Regular rate and rhythm. S1 and S2, without murmurs, gallops, or rubs. VASCULAR: No Edema. Peripheral pulses normal and equal in all extremities. ABDOMEN: Soft, Tender in the abdomen no rebound or distention noted. Bowel Sounds normal. MUSCULOSKELETAL: Good range of motion of all major joints. Extremities without clubbing, cyanosis or edema. NEUROLOGIC EXAM: Alert and oriented x 3. No focal sensory or strength deficits. Speech normal. Follows commands. PSYCHIATRIC: Mood normal. SKIN: No rash or lesions. - Constitutional Vitals: Temp Pulse Resp BP Pulse Ox 98.2 F 90 18 161/106 96 12/27/16 08:10 12/27/16 08:25 12/27/16 08:25 12/27/16 08:10 12/27/16 10:00 General appearance: Present: mild distress Results - Labs CBC & Chem 7: 12/27/16 06:30 12/27/16 06:30 Labs: Laboratory Last Values WBC 12.6 K/mm3 (4.5-11.0) H 12/27/16 06:30 RBC 2.36 M/mm3 (3.65-5.03) L 12/27/16 06:30 Hgb 7.3 gm/dl (11.8-15.2) L 12/27/16 06:30 Hct 22.6 % (35.5-45.6) L 12/27/16 06:30 MCV 95 fl (84-94) H 12/27/16 06:30 MCH 31 pg (28-32) 12/27/16 06:30 MCHC 33 % (32-34) 12/27/16 06:30 RDW 18.5 % (13.2-15.2) H 12/27/16 06:30 Plt Count 326 K/mm3 (140-440) 12/27/16 06:30 Lymph % (Auto) 5.9 % (13.4-35.0) L 12/20/16 06:36 [place] % (Auto) 4.3 % (0.0-7.3) 12/20/16 06:36 Eos % (Auto) 0.0 % (0.0-4.3) 12/20/16 06:36 Baso % (Auto) 0.3 % (0.0-1.8) 12/20/16 06:36 Lymph # 0.6 K/mm3 (1.2-5.4) L 12/20/16 06:36 [place] # 0.4 K/mm3 (0.0-0.8) 12/20/16 06:36 Eos # 0.0 K/mm3 (0.0-0.4) 12/20/16 06:36 Baso # 0.0 K/mm3 (0.0-0.1) 12/20/16 06:36 Seg Neutrophils % 89.5 % (40.0-70.0) H 12/20/16 06:36 Seg Neutrophils # 8.6 K/mm3 (1.8-7.7) H 12/20/16 06:36 PT 13.2 Sec. (12.2-14.9) 12/20/16 06:36 INR 1.01 (0.87-1.13) 12/20/16 06:36 APTT 24.6 Sec. (24.2-36.6) 12/20/16 06:36 POC ABG pH 7.560 (7.35-7.45) H 12/25/16 14:14 POC ABG pCO2 38.0 (35-45) 12/25/16 14:14 POC ABG pO2 34 (80-105) L 12/25/16 14:14 POC ABG HCO3 34.1 12/25/16 14:14 POC ABG Total CO2 35 12/25/16 14:14 POC ABG O2 Sat 75 12/25/16 14:14 POC ABG Base Excess 12 12/25/16 14:14 VBG pH 7.302 (7.320-7.420) L 12/20/16 07:45 Sodium 138 mmol/L (137-145) 12/27/16 06:30 Potassium 3.9 mmol/L (3.6-5.0) 12/27/16 06:30 Chloride 91.3 mmol/L (98-107) L 12/27/16 06:30 Carbon Dioxide 30 mmol/L (22-30) 12/27/16 06:30 Anion Gap 21 mmol/L 12/27/16 06:30 BUN 65 mg/dL (9-20) H 12/27/16 06:30 Creatinine 15.7 mg/dL (0.8-1.5) H 12/27/16 06:30 Estimated GFR 4 ml/min 12/27/16 06:30 BUN/Creatinine Ratio 4.14 % 12/27/16 06:30 Glucose 124 mg/dL (75-100) H 12/27/16 06:30 POC Glucose 102 (70-105) 12/26/16 21:11 Lactic Acid 0.9 mmol/L (0.7-2.0) 12/20/16 07:45 Calcium 8.6 mg/dL (8.4-10.2) 12/27/16 06:30 Phosphorus 5.7 mg/dL (2.5-4.5) H 12/20/16 06:36 Magnesium 2.1 mg/dL (1.7-2.3) 12/20/16 06:36 Total Bilirubin 0.4 mg/dL (0.1-1.2) 12/27/16 06:30 Direct Bilirubin < 0.2 mg/dL (0-0.2) 12/20/16 06:36 AST 23 units/L (5-40) 12/27/16 06:30 ALT 20 units/L (7-56) 12/27/16 06:30 Alkaline Phosphatase 53 units/L (35-129) 12/27/16 06:30 Total Creatine Kinase 121 units/L (55-170) 12/20/16 06:36 CK-MB (CK-2) 1.2 ng/mL (0.0-4.0) 12/20/16 06:36 CK-MB (CK-2) Rel Index 0.9 (0-4) 12/20/16 06:36 Troponin T < 0.010 ng/mL (0.00-0.029) 12/20/16 06:36 NT-Pro-B Natriuret Pep 6862 pg/mL (0-450) H 12/20/16 06:36 Total Protein 5.6 g/dL (6.3-8.2) L 12/27/16 06:30 Albumin 2.2 g/dL (3.9-5) L 12/27/16 06:30 Albumin/Globulin Ratio 0.6 % 12/27/16 06:30 Triglycerides 49 mg/dL (2-149) 12/22/16 05:37 Cholesterol 87 mg/dL (50-199) 12/22/16 05:37 LDL Cholesterol Direct 40 mg/dL (50-130) L 12/22/16 05:37 HDL Cholesterol 38 mg/dL (40-59) L 12/22/16 05:37 Cholesterol/HDL Ratio 2.28 % 12/22/16 05:37 Lipase 81 units/L (13-60) H 12/25/16 07:30 Urine Color Yellow (Yellow) 12/20/16 08:00 Urine Turbidity Clear (Clear) 12/20/16 08:00 Urine pH 7.0 (5.0-7.0) 12/20/16 08:00 Ur Specific [place] 1.009 (1.003-1.030) 12/20/16 08:00 Urine Protein 100 mg/dl mg/dL (Negative) 12/20/16 08:00 Urine Glucose (UA) Neg mg/dL (Negative) 12/20/16 08:00 Urine Ketones Neg mg/dL (Negative) 12/20/16 08:00 Urine Blood Lg (Negative) 12/20/16 08:00 Urine Nitrite Neg (Negative) 12/20/16 08:00 Urine Bilirubin Neg (Negative) 12/20/16 08:00 Urine Urobilinogen < 2.0 mg/dL (<2.0) 12/20/16 08:00 Ur Leukocyte Esterase Sm (Negative) 12/20/16 08:00 Urine WBC (Auto) 7.0 /HPF (0.0-6.0) H 12/20/16 08:00 Urine RBC (Auto) 8.0 /HPF (0.0-6.0) 12/20/16 08:00 U Epithel Cells (Auto) < 1.0 /HPF (0-13.0) 12/20/16 08:00 Urine Mucus Few /HPF 12/20/16 08:00 Urine Opiates Screen Presumptive negative 12/20/16 08:00 Urine Methadone Screen Presumptive negative 12/20/16 08:00 Ur Barbiturates Screen Presumptive negative 12/20/16 08:00 Ur Phencyclidine Scrn Presumptive negative 12/20/16 08:00 Ur Amphetamines Screen Presumptive negative 12/20/16 08:00 U Benzodiazepines Scrn Presumptive negative 12/20/16 08:00 Urine Cocaine Screen Presumptive negative 12/20/16 08:00 U Marijuana (THC) Screen Presumptive negative 12/20/16 08:00 Drugs of Abuse Note Disclamer 12/20/16 08:00 - Imaging and Cardiology CT scan - abdomen: image reviewed (worsening edema no necrosis)
[2016-12-27] MEDS: ROCALTROL PO SCH ×2 (11:49→22:32)
[2016-12-27] MEDS: ZITHROMAX PO SCH (11:51)
--- NOTE | 2016-12-27 15:12 | Progress Note ---
Assessment and Plan - Patient Problems (1) Acute pancreatitis Current Visit: Yes Status: Acute Qualifiers: Pancreatitis type: unspecified pancreatitis type Acute pancreatitis complication: unspecified Qualified Code(s): K85.90 - Acute pancreatitis without necrosis or infection, unspecified Plan to address problem: Continue medical management. Advance diet as tolerated. Continue pain control (2) ESRD on peritoneal dialysis Current Visit: No Status: Acute Plan to address problem: Renal indices improving. With change peritoneal dialysis exchanges to every 4 hours but skip 2 AM exchange but continue using 1.5% dianeal for all exchanges. (3) Anemia, chronic renal failure Current Visit: No Status: Acute Qualifiers: Chronic kidney disease stage: stage 5 Qualified Code(s): N18.5 - Chronic kidney disease, stage 5; D63.1 - Anemia in chronic kidney disease Plan to address problem: Give erythropoietin and follow-up hemoglobin (4) Hypertension Current Visit: No Status: Acute Qualifiers: Hypertension type: essential hypertension Qualified Code(s): I10 - Essential (primary) hypertension Plan to address problem: Follow-up blood pressure on current medications Subjective Date of service: 12/27/16 Principal diagnosis: acute pancreatitis Interval history: Patient seen lying in bed. Still complaining of abdominal pain but much better. No nausea or vomiting. Has back pain Objective - Exam Narrative Exam: Middle-aged -Spanish male lying in bed in no acute distress HEENT normocephalic atraumatic, pupils equal reactive to light, pink, clear oropharynx Neck supple, no thyromegaly no jugular venous distention CVS S1-S2 regular rate rhythm without murmur, rub or gallop Chest clear to auscultation Abdomen soft nondistended mild tenderness, PD catheter intact with no erythema or drainage from the exit site, no organomegaly no bruit bowel sounds present Extremities no edema, left upper extremity AV fistula no cyanosis or clubbing Neuro awake, alert oriented x3 no gross deficit - Vital Signs Vital signs: Vital Signs - 12hr 12/27/16 12/27/16 12/27/16 04:26 08:10 08:25 Temperature 98.2 F 98.2 F Pulse Rate [ 86 90 Anterior Bilateral Throughout] Pulse Rate [ 91 H 91 H Right Radial] Respiratory 18 22 Rate Respiratory 20 18 Rate [Anterior Bilateral Throughout] Blood Pressure 148/90 161/106 [Right Arm] O2 Sat by Pulse 94 99 Oximetry 12/27/16 12/27/16 12/27/16 10:00 14:40 14:52 Temperature Pulse Rate [ 98 H 102 H Anterior Bilateral Throughout] Pulse Rate [ Right Radial] Respiratory Rate Respiratory 20 20 Rate [Anterior Bilateral Throughout] Blood Pressure [Right Arm] O2 Sat by Pulse 96 Oximetry - Lab 12/27/16 06:30 12/27/16 06:30 Most recent lab results Calcium 8.6 mg/dL (8.4-10.2) 12/27/16 06:30 Phosphorus 5.7 mg/dL (2.5-4.5) H 12/20/16 06:36 Magnesium 2.1 mg/dL (1.7-2.3) 12/20/16 06:36
[2016-12-27] MEDS: TYLENOL PO PRN (18:00)
[2016-12-28] MEDS: TYLENOL PO PRN ×4 (00:40→21:23)
[2016-12-28] MEDS: DIANEAL LOW CALCIUM W/1.5% DEXTROSE IP SCH ×6 (02:00→22:43)
[2016-12-28 05:11] LABS: Hematocrit 21.4 % (35.5-45.6); Mean Corpuscular HGB Conc 33 % (32-34); Mean Corpuscular Hemoglobin 31 pg (28-32); Mean Corpuscular Volume 95 fl (84-94); Platelet Count 358 K/mm3 (140-440); Red Blood Count 2.26 M/mm3 (3.65-5.03); Red Cell Distribution Width 18.8 % (13.2-15.2); White Blood Count 12.8 K/mm3 (4.5-11.0)
[2016-12-28 05:28] LABS: Albumin 2.1 g/dL (3.9-5); Albumin/Globulin Ratio 0.7 %; BUN/Creatinine Ratio 4.12; Bilirubin,Total 0.3 mg/dL (0.1-1.2); Calcium 8.5 mg/dL (8.4-10.2); Chloride 92.5 mmol/L (98-107); Potassium 3.7 mmol/L (3.6-5.0); Total Protein 5.3 g/dL (6.3-8.2)
[2016-12-28] MEDS: D5/0.45NS 1,000 ML IV SCH (06:45)
[2016-12-28] MEDS: DUONEB 0.5 MG-3 MG/3 ML SOLN IH SCH ×3 (07:20→20:07)
[2016-12-28] MEDS: CATAPRES PO SCH ×3 (08:17→21:18)
[2016-12-28] MEDS: RENVELA PO SCH ×3 (08:18→18:21)
--- NOTE | 2016-12-28 09:48 | Discharge Summary ---
Providers - Providers Date of Admission: 12/20/16 09:38 Date of discharge: 12/29/16 Attending physician: FELISA SMITH MD Primary care physician: DEVELOPMENT ADVISOR Hospitalization Reason for admission: Nausea with vomiting Condition: Stable Hospital course: This is a 46-year-old man who presents with a history of ESRD on peritoneal dialysis acute onset of nausea vomiting and postprandial abdominal pain found to have acute pancreatitis likely 2/2 to etoh abuse, admits to drinking 2 shots and half a beer daily. Her hospitalization patient continued to complain of pain in the abdomen radiating to the back with a 10 over 10 in intensity. He was started on nothing by mouth with pain control. Nephrology was consulted GI was consulted. He continued to undergo his peritoneal dialysis with good outcome. Repeat imaging studies did show some crease peripancreatic fluid and mesenteric and deep edema with mild ascites secondary to the peritoneal dialysis. There was no evidence of necrosis. Patient was nevertheless treated with antibiotics as she he did have episodes of pneumonia. Also hypoxic respiratory failure for which he was placed on oxygen. He is clinically stable today he is tolerating full liquid diet did tolerate 3 times yesterday with no further nausea episodes. He still has some abdominal pain but this is much improved. Additionally patient was planned to be discharged on the bowing noted tachycardia with hypoxia. Patient did receive a unit of blood per recommendation from public address servicer. Today his hypoxia is much improved although histocytes in about 86% on room air with ambulation and 95% at rest. He is clinically stable for discharge and will need oxygen with ambulation. Follow up with GI for reevaluation of the pancreatic edema. To ensure resolution. He is also to complete antibiotics as ordered. Discharge diagnosis * Acute pancreatitis secondary to alcohol abuse * SIRS secondary to pancreatitis * Hypoxic Respiratory failure * Pneumonia-Resolved * Anemia of chronic disease with Precipitatious drop in hemoglobin from baseline * Gastroenteritis- with persistent nausea and vomiting * End-stage renal disease on peritoneal dialysis * Constipation-moved ball yesterday * Metabolic acidosis secondary to end-stage renal disease * Hypertension * Leukocytosis-persist but no fever * Poor PO intake * Moderate protein calorie malnutrition * Secondary hyperparathyroidism * Alcohol abuse and dependence Disposition: DC/TX HOME UNDER HOME HEALTH Time spent for discharge: 35 MINS Core Measure Documentation - Palliative Care Palliative Care/ Comfort Measures: Not Applicable - Core Measures Any of the following diagnoses?: none - VTE Discharge Requirements Deep Vein Thrombosis/Pulmonary Embolism Present on Admission: No Exam - Physical Exam Narrative exam: VITAL SIGNS: Reviewed. GENERAL: The patient appeared well nourished and normally developed. Vital signs as documented. HEAD: No signs of head trauma. EYES: Pupils are equal. Extraocular motions intact. EARS: Hearing grossly intact. MOUTH: Oropharynx is normal. NECK: No adenopathy, no JVD. CHEST: Chest with clear breath sounds bilaterally. No wheezes, rales, or rhonchi. CARDIAC: Regular rate and rhythm. S1 and S2, without murmurs, gallops, or rubs. VASCULAR: No Edema. Peripheral pulses normal and equal in all extremities. ABDOMEN: Soft, Tender in the abdomen, siginificantly improved. No rebound or distention noted. Bowel Sounds normal. MUSCULOSKELETAL: Good range of motion of all major joints. Extremities without clubbing, cyanosis or edema. NEUROLOGIC EXAM: Alert and oriented x 3. No focal sensory or strength deficits. Speech normal. Follows commands. PSYCHIATRIC: Mood normal. SKIN: No rash or lesions. - Constitutional Vitals: Temp Pulse Resp BP Pulse Ox 98 F 98 H 20 154/98 97 12/28/16 08:32 12/28/16 08:32 12/28/16 08:32 12/28/16 08:32 12/28/16 08:32 Plan Activity: advance as tolerated, fall precautions Diet: renal, advance as tolerated (CONTINUE ON FULL LIQUID FOR 2-3 DAYS THEN ADVANCE TOLERATED) Special Instructions: record daily weights, record daily BP diary, home oxygen via (2l via nc with ambulation) Follow up with: DEVENDRA MERCADO MD [Primary Care Provider] - 3-5 Days JANA BLAKELY MD [Staff Physician] - 7 Days BEN TELLO MD [Staff Physician] - 7 Days Prescriptions: Azithromycin [Zithromax TAB] 500 mg PO QDAY #14 tablet metroNIDAZOLE [Flagyl] 500 mg PO Q12HR #14 tab Ondansetron [Zofran TAB] 4 mg PO Q6H PRN #30 tablet PRN Reason: Nausea Oxycodone HCl/Acetaminophen [Percocet 7.5/325 mg] 1 each PO Q6HR PRN #30 tablet PRN Reason: Pain
[2016-12-28] MEDS: LOVENOX SUB-Q SCH (09:52)
[2016-12-28] MEDS: PROCARDIA XL PO SCH (09:53)
[2016-12-28] MEDS: ROCEPHIN/NS 1 GM/50 ML 1 GM/50 ML BAG IV SCH (09:53)
[2016-12-28] MEDS: ZITHROMAX PO SCH (09:54)
[2016-12-28] MEDS: ROCALTROL PO SCH ×2 (10:29→21:19)
[2016-12-28] MEDS: NACL 0.9% 500 ML 500 ML IV ONE ×2 (10:32→14:11)
--- NOTE | 2016-12-28 11:39 | Progress Note ---
Assessment and Plan - Patient Problems (1) Acute pancreatitis Current Visit: Yes Status: Acute Qualifiers: Pancreatitis type: unspecified pancreatitis type Acute pancreatitis complication: unspecified Qualified Code(s): K85.90 - Acute pancreatitis without necrosis or infection, unspecified Plan to address problem: Continue medical management. Advance diet as tolerated. Agree with discharge after blood transfusion (2) ESRD on peritoneal dialysis Current Visit: No Status: Acute Plan to address problem: Renal indices improving. Give use 2.5% dianeal for next exchange since patient is receiving blood transfusion. Resume cycler at night at home on discharge (3) Anemia, chronic renal failure Current Visit: No Status: Acute Qualifiers: Chronic kidney disease stage: stage 5 Qualified Code(s): N18.5 - Chronic kidney disease, stage 5; D63.1 - Anemia in chronic kidney disease Plan to address problem: Patient needs packed red blood cell transfusion. Not responding adequately to Epogen due to pancreatitis. (4) Hypertension Current Visit: No Status: Acute Qualifiers: Hypertension type: essential hypertension Qualified Code(s): I10 - Essential (primary) hypertension Plan to address problem: Follow-up blood pressure on current medications Subjective Date of service: 12/28/16 Principal diagnosis: acute pancreatitis Interval history: Patient seen lying in bed. Still complaining of abdominal pain but much better. No nausea or vomiting. Tolerating diet Objective - Exam Narrative Exam: Middle-aged -[place] male lying in bed in no acute distress HEENT normocephalic atraumatic, pupils equal reactive to light, pink, clear oropharynx Neck supple, no thyromegaly no jugular venous distention CVS S1-S2 regular rate rhythm without murmur, rub or gallop Chest clear to auscultation Abdomen soft nondistended mild tenderness, PD catheter intact with no erythema or drainage from the exit site, no organomegaly no bruit bowel sounds present Extremities no edema, left upper extremity AV fistula no cyanosis or clubbing Neuro awake, alert oriented x3 no gross deficit - Vital Signs Vital signs: Vital Signs - 12hr 12/27/16 12/28/16 12/28/16 23:58 03:55 07:20 Temperature 98.7 F 98.6 F Pulse Rate Pulse Rate [ 103 H Anterior Bilateral Throughout] Pulse Rate [ 94 H 94 H Right Radial] Respiratory 20 20 Rate Respiratory 18 Rate [Anterior Bilateral Throughout] Blood Pressure Blood Pressure 144/88 138/90 [Right Arm] O2 Sat by Pulse 94 95 Oximetry 12/28/16 12/28/16 12/28/16 07:21 08:17 08:32 Temperature 98 F Pulse Rate 98 H Pulse Rate [ Anterior Bilateral Throughout] Pulse Rate [ 98 H Right Radial] Respiratory 20 Rate Respiratory Rate [Anterior Bilateral Throughout] Blood Pressure 154/98 Blood Pressure 154/98 [Right Arm] O2 Sat by Pulse 94 97 Oximetry 12/28/16 11:33 Temperature Pulse Rate Pulse Rate [ Anterior Bilateral Throughout] Pulse Rate [ Right Radial] Respiratory Rate Respiratory Rate [Anterior Bilateral Throughout] Blood Pressure Blood Pressure [Right Arm] O2 Sat by Pulse 100 Oximetry - Lab 12/28/16 04:28 12/28/16 04:28 Most recent lab results Calcium 8.5 mg/dL (8.4-10.2) 12/28/16 04:28 Phosphorus 5.7 mg/dL (2.5-4.5) H 12/20/16 06:36 Magnesium 2.1 mg/dL (1.7-2.3) 12/20/16 06:36
[2016-12-28] MEDS ORDERED: DIANEAL LOW CALCIUM W/2.5% DEXTROSE IP SCH (12:15)
[2016-12-28] MEDS ORDERED: NACL 0.9% 500 ML 500 ML ONE (12:53)
[2016-12-28] MEDS: DILAUDID IV PRN (22:57)
[2016-12-29 04:57] VITALS: BP 139/86
[2016-12-29] MEDS: DIANEAL LOW CALCIUM W/1.5% DEXTROSE IP SCH ×5 (06:40→17:18)
[2016-12-29] MEDS: DILAUDID IV PRN (06:40)
--- NOTE | 2016-12-29 07:19 | Progress Note ---
Assessment and Plan Assessment and plan: This is a 46-year-old man who presents with a history of ESRD on peritoneal dialysis acute onset of nausea vomiting and postprandial abdominal pain found to have acute pancreatitis likely 2/2 to etoh abuse, admits to drinking 2 shots and half a beer daily * Acute pancreatitis secondary to alcohol abuse * SIRS secondary to pancreatitis * Hypoxic Respiratory failure- sats 85% on ambulation * Pneumonia-Resolved * Gastroenteritis- with persistent nausea and vomiting * End-stage renal disease on peritoneal dialysis * Constipation-moved ball yesterday * Precipitatious drop in hemoglobin * Metabolic acidosis secondary to end-stage renal disease * Hypertension * Leukocytosis-persist but no fever * Poor PO intake * Moderate protein calorie malnutrition * Secondary hyperparathyroidism * Alcohol abuse and dependence Plan * Give 2 units PRBC * GContinue supportive care, still unable to take nothing by mouth. We'll insert a Dobbhoff for enteral nutrition. * CT abdomen shows worsening pancreatitis but no necrosis. * Unfortunately cannot give much fluids due to ESRD patient is on PD and does have appendicitis. * Continue Antiemetics, analgesia. will try diet again today. * Taper pain medication * Lactulose for constipation. * Continue oxygen 2 L NC * Did review the chest x-ray does not show any further infiltrate. We'll obtain a nuclear scan if hypoxia still persist. * Continue incentive spirometer * zofran and reglan PRN * continue abx * Continue IV D5 1/2NS * Continue peritoneal dialysis. * Monitor his electrolytes * Extensive counseling provided to the patient the need to quit alcohol patient verbalized understanding resources provided to the patient. * DVT/GI prophylaxis * Discussed in detail with patient. * Plan on discharge once patient tolerated by mouth * pLAN WAS FOR DISCHARGE TODAY BUT STARTED BECOMING TACHYCARDIC ON AMBULATION. . History Interval history: Patient seen and examined this morning tolerated clear liquids. Otherwise did have bowel movements continues to complain of intermittent abdominal pain. Rates it a 3/10 Intensity some improvement noted. Denies any chest pain, diarrhea No fever noted blood pressure controlled No adverse events reported to me by nursing staff Hospitalist Physical - Physical exam Narrative exam: VITAL SIGNS: Reviewed. GENERAL: The patient appeared well nourished and normally developed. Vital signs as documented. HEAD: No signs of head trauma. EYES: Pupils are equal. Extraocular motions intact. EARS: Hearing grossly intact. MOUTH: Oropharynx is normal. NECK: No adenopathy, no JVD. CHEST: Chest with clear breath sounds bilaterally. No wheezes, rales, or rhonchi. CARDIAC: Regular rate and rhythm. S1 and S2, without murmurs, gallops, or rubs. VASCULAR: No Edema. Peripheral pulses normal and equal in all extremities. ABDOMEN: Soft, Tender in the abdomen, siginificantly improved. No rebound or distention noted. Bowel Sounds normal. MUSCULOSKELETAL: Good range of motion of all major joints. Extremities without clubbing, cyanosis or edema. NEUROLOGIC EXAM: Alert and oriented x 3. No focal sensory or strength deficits. Speech normal. Follows commands. PSYCHIATRIC: Mood normal. SKIN: No rash or lesions. - Constitutional Vitals: Temp Pulse Resp BP Pulse Ox 98.4 F 88 20 139/86 94 12/29/16 04:00 12/29/16 04:00 12/29/16 04:00 12/29/16 04:00 12/28/16 20:10 General appearance: Present: mild distress Results - Labs CBC & Chem 7: 12/28/16 04:28 12/28/16 04:28 Labs: Laboratory Last Values WBC 12.8 K/mm3 (4.5-11.0) H 12/28/16 04:28 RBC 2.26 M/mm3 (3.65-5.03) L 12/28/16 04:28 Hgb 7.0 gm/dl (11.8-15.2) L 12/28/16 04:28 Hct 21.4 % (35.5-45.6) L 12/28/16 04:28 MCV 95 fl (84-94) H 12/28/16 04:28 MCH 31 pg (28-32) 12/28/16 04:28 MCHC 33 % (32-34) 12/28/16 04:28 RDW 18.8 % (13.2-15.2) H 12/28/16 04:28 Plt Count 358 K/mm3 (140-440) 12/28/16 04:28 Lymph % (Auto) 5.9 % (13.4-35.0) L 12/20/16 06:36 [place] % (Auto) 4.3 % (0.0-7.3) 12/20/16 06:36 Eos % (Auto) 0.0 % (0.0-4.3) 12/20/16 06:36 Baso % (Auto) 0.3 % (0.0-1.8) 12/20/16 06:36 Lymph # 0.6 K/mm3 (1.2-5.4) L 12/20/16 06:36 [place] # 0.4 K/mm3 (0.0-0.8) 12/20/16 06:36 Eos # 0.0 K/mm3 (0.0-0.4) 12/20/16 06:36 Baso # 0.0 K/mm3 (0.0-0.1) 12/20/16 06:36 Seg Neutrophils % 89.5 % (40.0-70.0) H 12/20/16 06:36 Seg Neutrophils # 8.6 K/mm3 (1.8-7.7) H 12/20/16 06:36 PT 13.2 Sec. (12.2-14.9) 12/20/16 06:36 INR 1.01 (0.87-1.13) 12/20/16 06:36 APTT 24.6 Sec. (24.2-36.6) 12/20/16 06:36 POC ABG pH 7.560 (7.35-7.45) H 12/25/16 14:14 POC ABG pCO2 38.0 (35-45) 12/25/16 14:14 POC ABG pO2 34 (80-105) L 12/25/16 14:14 POC ABG HCO3 34.1 12/25/16 14:14 POC ABG Total CO2 35 12/25/16 14:14 POC ABG O2 Sat 75 12/25/16 14:14 POC ABG Base Excess 12 12/25/16 14:14 VBG pH 7.302 (7.320-7.420) L 12/20/16 07:45 Sodium 135 mmol/L (137-145) L 12/28/16 04:28 Potassium 3.7 mmol/L (3.6-5.0) 12/28/16 04:28 Chloride 92.5 mmol/L (98-107) L 12/28/16 04:28 Carbon Dioxide 29 mmol/L (22-30) 12/28/16 04:28 Anion Gap 17 mmol/L 12/28/16 04:28 BUN 61 mg/dL (9-20) H 12/28/16 04:28 Creatinine 14.8 mg/dL (0.8-1.5) H 12/28/16 04:28 Estimated GFR 4 ml/min 12/28/16 04:28 BUN/Creatinine Ratio 4.12 % 12/28/16 04:28 Glucose 110 mg/dL (75-100) H 12/28/16 04:28 POC Glucose 79 (70-105) 12/28/16 21:08 Lactic Acid 0.9 mmol/L (0.7-2.0) 12/20/16 07:45 Calcium 8.5 mg/dL (8.4-10.2) 12/28/16 04:28 Phosphorus 5.7 mg/dL (2.5-4.5) H 12/20/16 06:36 Magnesium 2.1 mg/dL (1.7-2.3) 12/20/16 06:36 Total Bilirubin 0.3 mg/dL (0.1-1.2) 12/28/16 04:28 Direct Bilirubin < 0.2 mg/dL (0-0.2) 12/20/16 06:36 AST 22 units/L (5-40) 12/28/16 04:28 ALT 19 units/L (7-56) 12/28/16 04:28 Alkaline Phosphatase 53 units/L (35-129) 12/28/16 04:28 Total Creatine Kinase 121 units/L (55-170) 12/20/16 06:36 CK-MB (CK-2) 1.2 ng/mL (0.0-4.0) 12/20/16 06:36 CK-MB (CK-2) Rel Index 0.9 (0-4) 12/20/16 06:36 Troponin T < 0.010 ng/mL (0.00-0.029) 12/20/16 06:36 NT-Pro-B Natriuret Pep 6862 pg/mL (0-450) H 12/20/16 06:36 Total Protein 5.3 g/dL (6.3-8.2) L 12/28/16 04:28 Albumin 2.1 g/dL (3.9-5) L 12/28/16 04:28 Albumin/Globulin Ratio 0.7 % 12/28/16 04:28 Triglycerides 49 mg/dL (2-149) 12/22/16 05:37 Cholesterol 87 mg/dL (50-199) 12/22/16 05:37 LDL Cholesterol Direct 40 mg/dL (50-130) L 12/22/16 05:37 HDL Cholesterol 38 mg/dL (40-59) L 12/22/16 05:37 Cholesterol/HDL Ratio 2.28 % 12/22/16 05:37 Lipase 81 units/L (13-60) H 12/25/16 07:30 Urine Color Yellow (Yellow) 12/20/16 08:00 Urine Turbidity Clear (Clear) 12/20/16 08:00 Urine pH 7.0 (5.0-7.0) 12/20/16 08:00 Ur Specific [place] 1.009 (1.003-1.030) 12/20/16 08:00 Urine Protein 100 mg/dl mg/dL (Negative) 12/20/16 08:00 Urine Glucose (UA) Neg mg/dL (Negative) 12/20/16 08:00 Urine Ketones Neg mg/dL (Negative) 12/20/16 08:00 Urine Blood Lg (Negative) 12/20/16 08:00 Urine Nitrite Neg (Negative) 12/20/16 08:00 Urine Bilirubin Neg (Negative) 12/20/16 08:00 Urine Urobilinogen < 2.0 mg/dL (<2.0) 12/20/16 08:00 Ur Leukocyte Esterase Sm (Negative) 12/20/16 08:00 Urine WBC (Auto) 7.0 /HPF (0.0-6.0) H 12/20/16 08:00 Urine RBC (Auto) 8.0 /HPF (0.0-6.0) 12/20/16 08:00 U Epithel Cells (Auto) < 1.0 /HPF (0-13.0) 12/20/16 08:00 Urine Mucus Few /HPF 12/20/16 08:00 Urine Opiates Screen Presumptive negative 12/20/16 08:00 Urine Methadone Screen Presumptive negative 12/20/16 08:00 Ur Barbiturates Screen Presumptive negative 12/20/16 08:00 Ur Phencyclidine Scrn Presumptive negative 12/20/16 08:00 Ur Amphetamines Screen Presumptive negative 12/20/16 08:00 U Benzodiazepines Scrn Presumptive negative 12/20/16 08:00 Urine Cocaine Screen Presumptive negative 12/20/16 08:00 U Marijuana (THC) Screen Presumptive negative 12/20/16 08:00 Drugs of Abuse Note Disclamer 12/20/16 08:00 Blood Type AB POSITIVE 12/28/16 10:59 Antibody Screen Negative 12/28/16 10:59 Crossmatch See Detail 12/28/16 10:59
[2016-12-29] MEDS: DUONEB 0.5 MG-3 MG/3 ML SOLN IH SCH ×2 (07:52→14:05)
[2016-12-29 08:07] LABS: Hematocrit 24.2 % (35.5-45.6); Hemoglobin 7.9 gm/dl (11.8-15.2); Mean Corpuscular HGB Conc 33 % (32-34); Mean Corpuscular Hemoglobin 30 pg (28-32); Mean Corpuscular Volume 93 fl (84-94); Platelet Count 422 K/mm3 (140-440); Red Blood Count 2.59 M/mm3 (3.65-5.03); Red Cell Distribution Width 18.2 % (13.2-15.2); White Blood Count 14.6 K/mm3 (4.5-11.0)
[2016-12-29 08:17] LABS: BUN/Creatinine Ratio 3.64; Chloride 92.8 mmol/L (98-107); Potassium 4.5 mmol/L (3.6-5.0)
[2016-12-29] MEDS: RENVELA PO SCH ×3 (08:44→17:19)
[2016-12-29] MEDS: CATAPRES PO SCH ×2 (08:44→13:39)
[2016-12-29] MEDS: ROCEPHIN/NS 1 GM/50 ML 1 GM/50 ML BAG IV SCH (10:41)
[2016-12-29] MEDS: ROCALTROL PO SCH (10:42)
[2016-12-29] MEDS: ZITHROMAX PO SCH (10:43)
[2016-12-29] MEDS: PROCARDIA XL PO SCH (10:43)
[2016-12-29] MEDS: LOVENOX SUB-Q SCH (10:43)
[2016-12-29] MEDS: TYLENOL PO PRN ×2 (11:41→17:00)
--- NOTE | 2016-12-29 16:41 | Progress Note ---
Assessment and Plan (1) Acute pancreatitis Current Visit: Yes Status: Acute Qualifiers: Pancreatitis type: unspecified pancreatitis type Acute pancreatitis complication: unspecified Qualified Code(s): K85.90 - Acute pancreatitis without necrosis or infection, unspecified Plan to address problem: Continue medical management. Agree with discharge. (2) ESRD on peritoneal dialysis Current Visit: No Status: Acute Plan to address problem: Renal indices improving. Give use 2.5% dianeal for next exchange since patient is receiving blood transfusion. Resume cycler at night at home on discharge Will f/u with pt at [facility] dialysis clinic (3) Anemia, chronic renal failure Current Visit: No Status: Acute Qualifiers: Chronic kidney disease stage: stage 5 Qualified Code(s): N18.5 - Chronic kidney disease, stage 5; D63.1 - Anemia in chronic kidney disease Plan to address problem: s/P packed red blood cell transfusion. Not responding adequately to Epogen due to pancreatitis. (4) Hypertension Current Visit: No Status: Acute Qualifiers: Hypertension type: essential hypertension Qualified Code(s): I10 - Essential (primary) hypertension Plan to address problem: Follow-up blood pressure on current medications Subjective Date of service: 12/29/16 Principal diagnosis: acute pancreatitis Interval history: seen lying in bed awaiting delivery of O2 Abdominal pain better, awaiting D/C Objective - Exam Narrative Exam: Middle-aged -[place] male lying in bed in no acute distress HEENT normocephalic atraumatic, pupils equal reactive to light, pink, clear oropharynx Neck supple, no thyromegaly no jugular venous distention CVS S1-S2 regular rate rhythm without murmur, rub or gallop Chest clear to auscultation Abdomen soft nondistended mild tenderness, PD catheter intact with no erythema or drainage from the exit site, no organomegaly no bruit bowel sounds present Extremities no edema, left upper extremity AV fistula no cyanosis or clubbing Neuro awake, alert oriented x3 no gross deficit - Vital Signs Vital signs: Vital Signs - 12hr 12/29/16 12/29/16 12/29/16 07:53 07:54 08:01 Pulse Rate [ 98 H 96 H Anterior Bilateral Throughout] Respiratory 18 18 Rate [Anterior Bilateral Throughout] O2 Sat by Pulse 94 Oximetry 12/29/16 12/29/16 14:06 14:12 Pulse Rate [ 94 H 96 H Anterior Bilateral Throughout] Respiratory 16 16 Rate [Anterior Bilateral Throughout] O2 Sat by Pulse Oximetry - Lab 12/29/16 07:33 12/29/16 07:33 Most recent lab results Calcium 9.0 mg/dL (8.4-10.2) 12/29/16 07:33 Phosphorus 5.7 mg/dL (2.5-4.5) H 12/20/16 06:36 Magnesium 2.1 mg/dL (1.7-2.3) 12/20/16 06:36
--- NOTE | 2016-12-29 18:57 | Event Note ---
Date: 12/29/16 Patient seen and examined. I reviewed above PETROLEUM REFINERY OPERATOR notes which I agree with. Assessment and Plan discussed earlier. Agree with DC
== END 2016-12-29 19:00 | disposition home health service (06) | DRG 438 ==
LOC: ED 06:02 → 3A 09:38
PROVIDERS: ADMIT Internal Medicine; ATTEND Internal Medicine
PROC: 4A033R1 Measurement of Arterial Saturation, Peripheral, Percutaneous Approach (ICD-10-PCS; principal; 2016-12-25)
PROC: 30233N1 Transfusion of Nonautologous Red Blood Cells into Peripheral Vein, Percutaneous Approach (ICD-10-PCS; 2016-12-28)
DX: K85.20 Alcohol induced acute pancreatitis without necrosis or infection (principal); J18.9 Pneumonia, unspecified organism; N18.6 End stage renal disease; J96.01 Acute respiratory failure with hypoxia; I13.0 Hypertensive heart and chronic kidney disease with heart failure and stage 1 through stage 4 chronic kidney disease, or unspecified chronic kidney disease; N25.81 Secondary hyperparathyroidism of renal origin; E44.0 Moderate protein-calorie malnutrition; R65.10 Systemic inflammatory response syndrome (SIRS) of non-infectious origin without acute organ dysfunction; K52.9 Noninfective gastroenteritis and colitis, unspecified; F17.290 Nicotine dependence, other tobacco product, uncomplicated; K21.9 Gastro-esophageal reflux disease without esophagitis; I48.91 Unspecified atrial fibrillation; I25.10 Atherosclerotic heart disease of native coronary artery without angina pectoris; E03.9 Hypothyroidism, unspecified; R56.9 Unspecified convulsions; I50.9 Heart failure, unspecified; D63.1 Anemia in chronic kidney disease; K59.00 Constipation, unspecified; Z86.711 Personal history of pulmonary embolism; Z68.27 Body mass index [BMI] 27.0-27.9, adult; Z99.2 Dependence on renal dialysis; Z86.718 Personal history of other venous thrombosis and embolism; Z82.49 Family history of ischemic heart disease and other diseases of the circulatory system; Z86.73 Personal history of transient ischemic attack (TIA), and cerebral infarction without residual deficits
CPT/HCPCS: 36415; 36600; 71010; 72128; 72131; 74176; 76705; 80048; 80053; 80061; 80074; 80307; 81001; 82140; 82550; 82553; 82803; 82805; 82962; 83690; 83735; 83880; 84100; 84484; 85025; 85027; 85610; 85730; 86850; 86900; 86901; 86920; 87040; 94640; 94760; 96365; 96375; 99406; C9113; J0456; J0696; J1170; J1200; J1650; J1956; J2060; J2270; J2405; J2765; J7030; J7040; J7050; J7070; P9016

== ENCOUNTER 2017-04-06 13:29 | Emergency (ER) | payer MEDICARE ==
--- NOTE | 2017-04-06 14:07 | Emergency Department Report ---
Chief Complaint: Abdominal Pain Stated Complaint: DIZZY SPELL, WEAKNESS,BLOOD IN VOMIT Time Seen by Provider: 04/06/17 14:03 - HPI History of Present Illness: PT c/o sob x 2 weeks. PT c/o abd pain x 4 - 5 days, vomiting starting today - ROS Review of Systems: + dizziness + n/v + sob - Exam Vital Signs: Vital Signs 04/06/17 13:36 Temperature 97.6 F Pulse Rate 96 H Respiratory 16 Rate Blood Pressure 101/78 O2 Sat by Pulse 99 Oximetry Physical Exam: pt looks well, non toxic. abd soft, epigastric tenderness MSE screening note: Focused history and physical exam performed. Due to findings the following was ordered: labs, ekg, xr ED Disposition for MSE Condition: Stable
[2017-04-06 14:36] LABS: Basophils % (Auto) 1.2 % (0.0-1.8); Hematocrit 35.7 % (35.5-45.6); Hemoglobin 11.6 gm/dl (11.8-15.2); Mean Corpuscular HGB Conc 33 % (32-34); Mean Corpuscular Hemoglobin 31 pg (28-32); Mean Corpuscular Volume 95 fl (84-94); Platelet Count 259 K/mm3 (140-440); Red Blood Count 3.77 M/mm3 (3.65-5.03); Red Cell Distribution Width 17.1 % (13.2-15.2); White Blood Count 7.3 K/mm3 (4.5-11.0)
--- NOTE | 2017-04-06 14:38 | XRay Report ---
Chest 2 views: History: Shortness of breath. Findings: Normal cardiomediastinal silhouette. Trachea is midline. No consolidation, pneumothorax or pleural effusion. Impression: No acute cardiopulmonary findings.
[2017-04-06 14:47] LABS: INR 1.11 (0.87-1.13)
[2017-04-06 14:48] LABS: Partial Thromboplastin Time 27.1 Sec. (24.2-36.6)
[2017-04-06 14:53] LABS: Albumin 3.6 g/dL (3.9-5); BUN/Creatinine Ratio 3.41; Bilirubin,Total 0.3 mg/dL (0.1-1.2); Calcium 9.5 mg/dL (8.4-10.2); Chloride 94.3 mmol/L (98-107); Potassium 4.8 mmol/L (3.6-5.0); Total Protein 7.3 g/dL (6.3-8.2)
[2017-04-06] MEDS ORDERED: LIDOCAINE VISCOUS 2% PO ONE (21:05)
[2017-04-06] MEDS ORDERED: ALUM-MAG HYDROX-SIMETH 200-200-20MG/5ML PO ONE (21:05)
[2017-04-06] MEDS ORDERED: PROTONIX IV ONE (21:06)
--- NOTE | 2017-04-06 21:13 | Emergency Department Report ---
HPI - General Chief Complaint: Abdominal Pain Time Seen by Provider: 04/06/17 14:03 - HPI HPI: Room 4 The patient is a 46-year-old male presenting with a chief complaint of abdominal pain and hematemesis. Patient states his burning epigastric abdominal pain for approximately 5 days. Patient states this morning had episodes of hematemesis 3. The patient states his vomitus the first episode was dark brown then progressed to bright red. The patient states he noticed some "red" in his stool yesterday. Patient denies melena. Patient denies fever. Patient denies any change in his peritoneal dialysis fluid stating it has been clear. Patient has noticed increasing eructation. The patient currently gives his pain a score of 4-5/10 Location: Gastrointestinal system Duration: 5 days Quality: Burning Severity: 4-5/10 Modifying factors: [see above] Context: [see above] Mode of transportation: The patient drove himself to the emergency department and there are no visitors present. ED Past Medical Hx - Past Medical History Previous Medical History?: Yes Hx Hypertension: Yes Hx Deep Vein Thrombosis: Yes (RIGHT LEG YRS AGO) Hx GERD: Yes (MILD) Hx Renal Disease: Yes (Uses home PD) Additional medical history: umbilical hernia - Surgical History Past Surgical History?: Yes Additional Surgical History: FISTULA LEFT ARM. HERNIA REPAIR X 2 - Family History Family history: no significant - Social History Smoking Status: Never Smoker Substance Use Type: Alcohol (occasional) - Medications Home Medications: Home Medications Medication Instructions Recorded Confirmed Last Taken Type Calcitriol [Rocaltrol] 1 mcg PO BID 03/24/16 03/26/17 03/25/16 History NIFEdipine XL [Procardia Xl] 60 mg PO QDAY 03/24/16 03/26/17 03/26/16 10:00 History Sevelamer Carbonate [Renvela] 800 mg PO TIDWM 03/24/16 03/26/17 03/25/16 History cloNIDine [Catapres] 0.2 mg PO TID 03/24/16 03/26/17 Unknown History Ondansetron [Zofran TAB] 4 mg PO Q6H PRN #30 tablet 12/28/16 03/26/17 Unknown Rx Lisinopril [Zestril TAB] 20 mg PO BID 03/26/17 03/26/17 Unknown History HYDROcodone/APAP 5-325 [[place] 1 - 2 each PO Q6HR PRN #14 tablet 04/06/17 Unknown Rx 5/325] Pantoprazole [Protonix] 40 mg PO QDAY #30 tablet 04/06/17 Unknown Rx Promethazine [Phenergan TAB] 25 mg PO Q6HR PRN #20 tab 04/06/17 Unknown Rx ED Review of Systems ROS: Stated complaint: DIZZY SPELL, WEAKNESS,BLOOD IN VOMIT Other details as noted in HPI Comment: All other systems reviewed and negative Constitutional: denies: chills, fever Eyes: denies: eye pain, eye discharge, vision change ENT: denies: ear pain, throat pain Respiratory: denies: cough, shortness of breath, wheezing Cardiovascular: denies: chest pain, palpitations Endocrine: no symptoms reported Gastrointestinal: abdominal pain, nausea, vomiting, hematemesis, hematochezia. denies: melena Genitourinary: denies: urgency, dysuria Musculoskeletal: denies: back pain, joint swelling, arthralgia Skin: denies: rash, lesions Neurological: denies: headache, weakness, paresthesias Psychiatric: denies: anxiety, depression Hematological/Lymphatic: denies: easy bleeding, easy bruising Physical Exam - Physical Exam Vital Signs: Vital Signs 04/06/17 13:36 Temperature 97.6 F Pulse Rate 96 H Respiratory 16 Rate Blood Pressure 101/78 O2 Sat by Pulse 99 Oximetry Physical Exam: GENERAL: The patient is well-developed well-nourished male lying on stretcher not appearing to be in acute distress. [] HEENT: Normocephalic. Atraumatic. Extraocular motions are intact. Patient has moist mucous membranes. NECK: Supple. Trachea midline CHEST/LUNGS: Clear to auscultation. There is no respiratory distress noted. HEART/CARDIOVASCULAR: Regular. There is no tachycardia. There is no gallop rub or murmur. ABDOMEN: Abdomen is soft, without focal tenderness but discomfort to palpation in the epigastric region. There is no rebound or guarding. Patient has normal bowel sounds. There is no abdominal distention. SKIN: There is no rash. There is no edema. There is no diaphoresis. NEURO: The patient is awake, alert, and oriented. The patient is cooperative. The patient has normal speech MUSCULOSKELETAL: There is no evidence of acute injury. RECTAL: Guaiac negative ED Course Vital Signs 04/06/17 13:36 Temperature 97.6 F Pulse Rate 96 H Respiratory 16 Rate Blood Pressure 101/78 O2 Sat by Pulse 99 Oximetry ED Medical Decision Making - Lab Data Result diagrams: 04/06/17 14:14 04/06/17 14:14 Laboratory Tests 04/06/17 04/06/17 04/06/17 14:14 14:14 14:14 WBC 7.3 RBC 3.77 Hgb 11.6 L Hct 35.7 MCV 95 H MCH 31 MCHC 33 RDW 17.1 H Plt Count 259 Lymph % (Auto) 18.0 [place] % (Auto) 5.3 Eos % (Auto) 1.0 Baso % (Auto) 1.2 Lymph # 1.3 [place] # 0.4 Eos # 0.1 Baso # 0.1 Seg Neutrophils % 74.5 H Seg Neutrophils # 5.5 PT 14.2 INR 1.11 APTT 27.1 Sodium 136 L Potassium 4.8 Chloride 94.3 L Carbon Dioxide 20 L Anion Gap 27 BUN 67 H Creatinine 19.6 H Estimated GFR 3 BUN/Creatinine Ratio 3.41 Glucose 97 Calcium 9.5 Total Bilirubin 0.30 AST 15 ALT 23 Alkaline Phosphatase 49 Troponin T 0.025 Total Protein 7.3 Albumin 3.6 L Albumin/Globulin Ratio 1.0 Lipase 90 H - EKG Data -: EKG Interpreted by Me EKG shows normal: sinus rhythm Rate: normal - EKG Data When compared to previous EKG there are: no significant change Interpretation: unchanged when compared t (02/06/2012) - Radiology Data Radiology results: report reviewed (CT abdomen and pelvis), image reviewed ( chest x-ray, CT abdomen and pelvis) interpreted by me: Chest x-ray-no focal infiltrates, no pneumothorax CT abdomen and pelvis (read by radiologist)-small amount of fluid posterior/ dependence the gastroesophageal junction may be infectious or inflammatory. No pneumoperitoneum, image mediastinum or focal or is a fluid collection consider endoscopy. Sequela of polycystic kidney disease. The pancreas, spleen and adrenals are unremarkable - Differential Diagnosis peptic ulcer disease, GERD, pericarditis, upper GI bleed Critical care attestation.: If time is entered above; I have spent that time in minutes in the direct care of this critically ill patient, excluding procedure time. ED Disposition Clinical Impression: Epigastric abdominal pain, Nausea & vomiting, Gastritis Disposition: DC-01 TO HOME OR SELFCARE Is pt being admited?: No Does the pt Need Aspirin: No Condition: Stable Instructions: Gastritis (ED), Peptic Ulcer (ED) Additional Instructions: Return to the emergency department immediately should you develop worsening symptoms, fever, inability to tolerate food or liquid or any other concerns. Prescriptions: HYDROcodone/APAP 5-325 [[place] 5/325] 1 - 2 each PO Q6HR PRN #14 tablet PRN Reason: Pain Pantoprazole [Protonix] 40 mg PO QDAY #30 tablet Promethazine [Phenergan TAB] 25 mg PO Q6HR PRN #20 tab PRN Reason: Nausea Referrals: SPENCER QUIROGA MD [Staff Physician] - [facility] (Dr. Quiroga is a nuclear reactor technician. Please follow up with him for further evaluation) Time of Disposition: 23:36
[2017-04-06] MEDS ORDERED: NACL P/F VIAL (10 ML) 10 ML ONE (21:18)
--- NOTE | 2017-04-06 22:28 | Cat Scan Report ---
FINAL REPORT EXAM: CT ABDOMEN PELVIS WO CON HISTORY: upper abdominal pain, hematemesis TECHNIQUE: CT images are acquired through the Abdomen and Pelvis following intravenous administration of contrast. Transaxial, coronal and sagittal reformations are provided. PRIORS: 12/20/2016 FINDINGS: Partially visualized intrathoracic contents are unremarkable. The liver and kidneys are remarkable for extensive involvement of polycystic disease. No evident obstructive uropathy. No stones in the urinary bladder. In the anterior approach surgical drain terminates anterior to the urinary bladder, not significantly changed from prior. Small volume of free fluid in the pelvis. The pancreas, spleen and adrenals are unremarkable. Small and large bowel are normal in caliber. Appendix is normal. Small amount of fluid or on the gastroesophageal junction. No free air, abdominal ascites, or lymphadenopathy identified. Aorta is normal in course and caliber. Superficial soft tissues are otherwise unremarkable. No acute or aggressive appearing skeletal findings. IMPRESSION: Small amount of fluid posterior/dependent to the gastroesophageal junction may be infectious or inflammatory. No pneumoperitoneum, imaged pneumomediastinum or focal organizing fluid collection consider endoscopy. Sequela of polycystic kidney disease.
[2017-04-06 23:57] VITALS: BP 118/70
== END 2017-04-06 23:58 | disposition home or self-care (01) ==
LOC: ED 13:29
DX: K29.70 Gastritis, unspecified, without bleeding (principal); R10.13 Epigastric pain; R11.2 Nausea with vomiting, unspecified; I10 Essential (primary) hypertension; I82.401 Acute embolism and thrombosis of unspecified deep veins of right lower extremity; K21.9 Gastro-esophageal reflux disease without esophagitis
CPT/HCPCS: 36415; 71020; 74176; 80053; 83690; 84484; 85025; 85610; 85730; 93005; 93010; 96374; 99284; C9113